=== PATIENT | female | born 1960 | race Caucasian/White ===

== ENCOUNTER 2019-10-16 06:37 | Emergency (ER) | payer OTHER, SELFPAY ==
--- NOTE | ~2019-10-16 | XR_ITS ---
EXAMINATION: XR chest 2V EXAM DATE: 10/16/2019 08:30 INDICATION: Cough. TECHNIQUE: Frontal and lateral projections of the chest obtained and reviewed. There is no prior calista dy for comparison. FINDINGS: Right basilar calcified granuloma. The lungs are otherwise clear. There are no pleural ef fusions. The cardiomediastinal silhouette is within normal limits. There is no pneumothorax suspect ed. The bones and soft tissues are unremarkable. Mild to moderate thoracolumbar scoliosis. IMPRESSION: No acute cardiopulmonary findings. Reviewed, dictated and finalized at location B.
[2019-10-16 06:45] VITALS: BP 179/88; PULSE 82; RESP 16; TEMP 36.4; O2SAT 95
--- NOTE | 2019-10-16 07:54 | ED.URI ---
HPI - URI/Sore Throat General Chief Complaint: Upper Respiratory Infection Stated Complaint: cough weakness fever Time Seen by Provider: 10/16/19 07:16 Source: patient Mode of arrival: ambulatory Limitations: no limitations History of Present Illness MD elicited complaint: cough Onset (ago): day(s) ( 4 days) Consistency: intermittent Severity: moderate Pain scale (0-10): 0 Description of mucous: yellow Exacerbating factors: nothing Relieving factors: nothing Context: other ( no sick contacts. No travel history.) Associated symptoms: cough and other ( No fever or chills. No nausea vomiting or diarrhea.) Treatments prior to arrival: other ( Took some Mucinex) Related Data Home Medications Medication Instructions Recorded Confirmed No Home Medications 10/16/19 10/16/19 Allergies Allergy/AdvReac Type Severity Reaction Status Date / Time No Known Allergies Allergy Unverified 12/06/17 06:42 Review of Systems Review of Systems: All systems reviewed & are unremarkable except as noted in HPI and below Constitutional: Constitutional: Reports as per HPI, Reports no additional constitutional complaints, Denies chills, Denies fever(s) and Denies weakness Eyes: Eyes: Reports as per HPI, Reports no additional eye complaints and Denies change in vision ENT: Reports system reviewed and no additional complaints, except as documented, Denies vertigo, Denies dizziness, Reports nasal congestion and Denies sore throat Cardiovascular: Cardiovascular: Reports as per HPI, Reports no additional cardiovascular complaints, Denies chest pain and Denies radiating jaw, neck or arm pain Respiratory: Respiratory: Reports as per HPI, Reports no additional respiratory complaints, Reports cough, Denies dyspnea and Denies wheezing Gastrointestinal: Gastrointestinal: Reports as per HPI, Reports no additional gastrointestinal complaints, Denies abdominal pain, Denies diarrhea, Denies nausea and Denies vomiting Genitourinary: Genitourinary: Reports no additional female genitourinary complaints, Reports as per HPI, Denies hematuria and Denies urinary incontinence Musculoskeletal: Musculoskeletal: Denies back pain and Denies myalgias Integumentary/Breasts: Skin/Breast: Reports system reviewed and no additional complaints, except as docu, Reports as per HPI, Denies pruritus, Denies erythema and Denies rash Neurologic: Reports system reviewed and no additional complaints, except as documented, Reports as per HPI, Denies vertigo, Denies dizziness, Denies syncope, Denies headache(s), Denies focal weakness, Denies numbness and Denies weakness Psychiatric: Psychiatric: Reports no additional psychiatric complaints, Denies anxiety and Denies depression Hematologic/Lymphatic: Hematologic/Lymphatic: Reports no additional hematologic/lymphatic complaints, Reports as per HPI, Denies easy bleeding and Denies easy bruising PMFSH Surgical History Surgical History (Updated 10/16/19 @ 08:20 by Jimenez Ac MD) History of carpal tunnel surgery Family History Family History (Updated 10/16/19 @ 08:21 by Jimenez Ac MD) Sibling Patient's sister is in good health Patient's brother is in good health Mother , mother of lung cancer at age 68 No problems noted. Father , father at age 75 of heart attack No problems noted. Other Family history of malignant neoplasm Social History Social History Smoking status: Heavy tobacco smoker Alcohol intake: never Exam Const: General: no acute distress and alert; No diaphoretic Nutritional Appearance: well nourished and obese Orientation/consciousness: patient oriented x3 Limitations: no limitations and No physical limitations HENMT: Ears: TM's normal bilaterally and EAC's normal General nose exam: no epistaxis Mouth: Yes lip normal and Yes moist mucous membranes Other: mild nasal congestion
[2019-10-16 07:55] LABS: Basophils Absolute Auto 0.03 K/mm3 (0.00-0.10); Basophils Percent Auto 0.4 % (0.0-1.0); Eosinophils Absolute Auto 0.28 K/mm3 (0.02-0.50); Eosinophils Percent Auto 3.6 % (1.0-6.0); Hematocrit 43.9 % (35.0-49.0); Hemoglobin 14.1 g/dL (12.0-15.0); Immature Granulocyte Absolute 0.01 K/mm3 (0.00-0.00); Immature Granulocyte Percent A 0.1 % (0.0-0.0); Lymphocytes Absolute Auto 2.55 K/mm3 (1.10-4.50); Lymphocytes Percent Auto 33.2 % (18.0-42.0); Mean Corpuscular HGB Conc 32.1 g/dL (32.0-36.0); Mean Corpuscular Hemoglobin 27.8 pg (27.0-31.0); Mean Corpuscular Volume 86.6 fL (78.0-102.0); Mean Platelet Volume 10.1 fl (9.2-11.8); Monocytes Absolute Auto 0.44 K/mm3 (0.10-0.90); Monocytes Percent Auto 5.7 % (2.0-11.0); Neutrophils Absolute Auto 4.4 K/mm3 (1.7-7.2); Platelet Count Result 238 K/mm3 (150-420); Red Blood Count 5.07 M/mm3 (4.20-5.40); Red Cell Distribution Width 13.4 % (11.6-14.4); White Blood Count 7.7 K/mm3 (4.8-10.8)
--- NOTE | 2019-10-16 08:08 | PC.NURSE ---
PT RETURNED TO ROOM
[2019-10-16 08:11] LABS: Alanine Aminotransferase 18 U/L (14-59); Albumin Level 3.7 g/dL (3.4-5.0); Alkaline Phosphatase 109 U/L (46-116); Aspartate Amino Transferase 11 U/L (15-37); Bilirubin,Total 0.3 mg/dL (0.00-1.00); Blood Urea Nitrogen 17 mg/dL (7-18); Calcium 9.2 mg/dL (8.5-10.1); Carbon Dioxide 24 mmol/L (21-32); Chloride 106 mmol/L (98-108); Estimated CRCL calculation 71 ml/min; Estimated Glomerular Filt Rate > 60; Glucose 114 mg/dL (70-99); Osmolality Calculated 296 mOsm/kg (285-295); Sodium 142 mmol/L (136-145); Total Protein 7.2 g/dL (6.4-8.2)
[2019-10-16 08:32] LABS: Influenza Control Valid (Valid)
[2019-10-16 09:22] VITALS: BP 164/88; PULSE 84; RESP 20; TEMP 36.4; O2SAT 97
== END 2019-10-16 09:24 | disposition home or self-care (01) ==
PROVIDERS: Emergency Provider Surgery
DX: B34.9 Viral infection, unspecified (principal)
CPT/HCPCS: 36415; 71046; 80053; 85025; 87081; 87804; 87880; 99282; 99283

== ENCOUNTER 2020-07-05 10:17 | Outpatient (NON) | payer OTHER, SELFPAY ==
[2020-07-06 13:30] LABS: SARS-CoV-2 RNA PCR Negative
== END 2020-07-05 10:18 ==
PROVIDERS: PCP Family Medicine; Visit Provider Family Medicine
DX: R68.89 Other general symptoms and signs (principal); Z20.828 Contact with and (suspected) exposure to other viral communicable diseases
CPT/HCPCS: 87635; C9803; U0003

== ENCOUNTER 2020-07-30 11:03 | Emergency (ER) | payer OTHER, SELFPAY ==
[2020-07-30 11:10] VITALS: BP 147/73; PULSE 81; RESP 19; TEMP 36.9; O2SAT 99
--- NOTE | 2020-07-30 11:15 | ED_ITS ---
HPI - Extremity Injury (Lower) General Chief Complaint: Extremity Injury, Lower Stated Complaint: R lower leg pain, numbess in R foot Time Seen by Provider: 07/30/20 11:15 Source: patient Mode of arrival: ambulatory Limitations: no limitations Related Data Home Medications Medication Instructions Recorded Confirmed No Home Medications 07/30/20 07/30/20 Allergies Allergy/AdvReac Type Severity Reaction Status Date / Time No Known Allergies Allergy Verified 11/17/19 14:32 [facility] Surgical History Surgical History (Updated 10/16/19 @ 08:20 by Jimenez Ac MD) History of carpal tunnel surgery Family History Family History (Updated 10/16/19 @ 08:21 by Jimenez Ac MD) Sibling Patient's sister is in good health Patient's brother is in good health Mother , mother of lung cancer at age 68 No problems noted. Father , father at age 75 of heart attack No problems noted. Other Family history of malignant neoplasm Social History Social History Smoking status: Heavy tobacco smoker Alcohol intake: never Discharge Plan Discharge Prescriptions: No Action No Home Medications RF: 0
--- NOTE | 2020-07-30 11:18 | ED.NEUROSD ---
HPI - Neuro Symptoms/Deficit General Chief Complaint: Extremity Problem,Nontraumatic Stated Complaint: R lower leg pain, numbess in R foot Time Seen by Provider: 07/30/20 11:15 Source: patient Mode of arrival: ambulatory Limitations: no limitations History of Present Illness HPI Narrative: 59-year-old woman with a history of peripheral vascular disease comes in complaining of pain behind her right knee and numbness in her right foot that is present when she stands. She states that the pain started approximately 3 days ago. She denies injury. She states she has had no chest pain, shortness of breath, and she denies pallor and coldness of her leg. She states he had a similar episode about 3 years ago and she was diagnosed with clogged arteries. She denies history of DVT, pulmonary embolism and hormonal therapy. Onset (ago): day(s) (3) Location: right leg History of same: Yes Severity: moderate Quality: numb Relieving factors: rest Exacerbating factors: other ( standing) On Anticoagulants: No Associated symptoms: denies other symptoms Related Data Allergies Allergy/AdvReac Type Severity Reaction Status Date / Time No Known Allergies Allergy Verified 11/17/19 14:32 Review of Systems Constitutional: Constitutional: Denies chills and Denies fever(s) ENT: Denies dysphagia, Denies nasal congestion and Denies sore throat Respiratory: Respiratory: Denies cough, Denies dyspnea and Denies wheezing Gastrointestinal: Gastrointestinal: Denies nausea and Denies vomiting Musculoskeletal: Musculoskeletal: Denies arthralgias and Denies joint swelling Integumentary/Breasts: Skin/Breast: Denies pruritus, Denies erythema and Denies rash Neurologic: Denies vertigo, Denies dizziness and Denies syncope Hematologic/Lymphatic: Hematologic/Lymphatic: Denies easy bleeding and Denies easy bruising Allergic/Immunologic: Allergic/Immunologic: Denies lip swelling, Denies throat swelling and Denies tongue swelling PMFSH Past Medical History Medical History Elevated BP without diagnosis of hypertension Gastroesophageal reflux disease without esophagitis Surgical History Surgical History History of carpal tunnel surgery Family History Family History (Updated 10/16/19 @ 08:21 by Jimenez Ac MD) Sibling Patient's sister is in good health Patient's brother is in good health Mother , mother of lung cancer at age 68 No problems noted. Father , father at age 75 of heart attack No problems noted. Other Family history of malignant neoplasm Social History Social History Smoking status: Heavy tobacco smoker Alcohol intake: never Exam Const: General: healthy appearing, no acute distress and alert Nutritional Appearance: obese Orientation/consciousness: patient oriented x3 Limitations: no limitations Eyes: Conjunctivae: conjunctivae normal Pupils: Equal, round and reactive pupils present EOM: EOMs intact bilaterally Resp: Effort & Inspection: normal respiratory effort and not labored Auscultation: clear to auscultation bilaterally, no rales, no rhonchi and no wheezes Cardio: Rate: regular rate Rhythm: regular rhythm Heart sounds: no murmurs Skin: General skin exam: normal color, no jaundice and no pallor Rashes: no rashes Neuro: General: patient oriented x3, moves all extremities, no focal motor deficits and CN's II-XI intact bilaterally Speech: normal speech Gait exam (Neuro): Normal gait present Other: Normal lower extremity distal sensory exam. Extrem: General: normal to inspection and no clubbing, cyanosis or edema Other: Warm, dry and pink bilaterally. 2Nd capillary refill. Regular biphasic pulses detected by Doppler at right dorsalis pedis and posterior tibialis. Psych: Appearance: grossly
[2020-07-30 12:19] LABS: Basophils Absolute Auto 0.02 K/mm3 (0.00-0.10); Basophils Percent Auto 0.3 % (0.0-1.0); Eosinophils Absolute Auto 0.24 K/mm3 (0.02-0.50); Eosinophils Percent Auto 3.2 % (1.0-6.0); Hematocrit 43.5 % (35.0-49.0); Hemoglobin 13.5 g/dL (12.0-15.0); Immature Granulocyte Absolute 0.03 K/mm3 (0.00-0.00); Immature Granulocyte Percent A 0.4 % (0.0-0.0); Lymphocytes Absolute Auto 2.24 K/mm3 (1.10-4.50); Lymphocytes Percent Auto 30.1 % (18.0-42.0); Mean Corpuscular Hemoglobin 27.3 pg (27.0-31.0); Mean Corpuscular Volume 88.1 fL (78.0-102.0); Mean Platelet Volume 10.2 fl (9.2-11.8); Monocytes Absolute Auto 0.43 K/mm3 (0.10-0.90); Monocytes Percent Auto 5.8 % (2.0-11.0); Neutrophils Absolute Auto 4.5 K/mm3 (1.7-7.2); Neutrophils Percent Auto 60.2 % (50.0-70.0); Platelet Count Result 233 K/mm3 (150-420); Red Blood Count 4.94 M/mm3 (4.20-5.40); Red Cell Distribution Width 13.6 % (11.6-14.4); White Blood Count 7.5 K/mm3 (4.8-10.8)
[2020-07-30 12:29] LABS: Anion Gap 9 mmol/L (8-16); Blood Urea Nitrogen 17 mg/dL (7-18); Calcium 9.1 mg/dL (8.5-10.1); Carbon Dioxide 27 mmol/L (21-32); Chloride 103 mmol/L (98-108); Estimated Glomerular Filt Rate 59; Glucose 104 mg/dL (70-99); Osmolality Calculated 289 mOsm/kg (285-295); Potassium 4.4 mmol/L (3.5-5.1); Sodium 139 mmol/L (136-145)
[2020-07-30 12:34] LABS: D Dimer 0.35 mg/L (0.19-0.50); INR 0.9; Partial Thromboplastin Time 25.1 SEC (23.90-30.70); Prothrombin Time 10.5 Seconds (9.50-12.10)
[2020-07-30 13:02] VITALS: RESP 16
== END 2020-07-30 13:05 | disposition home or self-care (01) ==
PROVIDERS: Emergency Provider Emergency Medicine; PCP Family Medicine
DX: R20.0 Anesthesia of skin (principal); M79.604 Pain in right leg
CPT/HCPCS: 36415; 80048; 85025; 85380; 85610; 85730; 99283

== ENCOUNTER → 2021-01-27 06:40 | Outpatient (CLI) | payer OTHER, SELFPAY ==
[2021-01-28 16:57] LABS: SARS-CoV-2 RNA PCR Negative
== END ==
PROVIDERS: PCP Family Medicine; Visit Provider Physician Assistant
DX: R05 Cough (principal); Z20.822 Contact with and (suspected) exposure to COVID-19
CPT/HCPCS: C9803; U0003; U0005

== ENCOUNTER 2022-12-11 13:42 | Outpatient (CLI) | payer MEDICAID, SELFPAY ==
--- NOTE | ~2022-12-11 | XR_ITS ---
Lumbosacral Spine: AP and lateral views Clinical History: Pain Findings: There is 23 degree levoscoliosis of the lumbar spine. There is moderate degenerative disc n arrowing at L1-L2, L3-L4, L4-L5. There is facet arthropathy throughout the lumbar spine, severe at L4 -L5 and L5-S1. The intervertebral disc spaces are preserved. The sacroiliac joints are normally outl ined. Impression: Levoscoliosis and moderate degenerative spondylosis, as detailed above. Reviewed, dictated and finalized at location M. Impression: Levoscoliosis and moderate degenerative spondylosis, as detailed above.
[2022-12-11 13:57] LABS: Basophils Absolute Auto 0.04 K/mm3 (0.00-0.10); Basophils Percent Auto 0.5 % (0.0-1.0); Eosinophils Absolute Auto 0.22 K/mm3 (0.02-0.50); Eosinophils Percent Auto 2.5 % (1.0-6.0); Hematocrit 45.1 % (35.0-49.0); Hemoglobin 14.4 g/dL (12.0-15.0); Immature Granulocyte Absolute 0.03 K/mm3 (0.00-0.00); Immature Granulocyte Percent A 0.3 % (0.0-0.0); Lymphocytes Absolute Auto 2.73 K/mm3 (1.10-4.50); Lymphocytes Percent Auto 31.2 % (18.0-42.0); Mean Corpuscular HGB Conc 31.9 g/dL (32.0-36.0); Mean Corpuscular Hemoglobin 27.9 pg (27.0-31.0); Mean Corpuscular Volume 87.4 fL (78.0-102.0); Mean Platelet Volume 10.1 fl (9.2-11.8); Monocytes Absolute Auto 0.47 K/mm3 (0.10-0.90); Monocytes Percent Auto 5.4 % (2.0-11.0); Neutrophils Absolute Auto 5.3 K/mm3 (1.7-7.2); Neutrophils Percent Auto 60.1 % (50.0-70.0); Platelet Count Result 257 K/mm3 (150-420); Red Blood Count 5.16 M/mm3 (4.20-5.40); Red Cell Distribution Width 13.2 % (11.6-14.4); White Blood Count 8.7 K/mm3 (4.8-10.8)
[2022-12-11 14:33] LABS: Alanine Aminotransferase 20 U/L (14-59); Alkaline Phosphatase 119 U/L (46-116); Anion Gap 11 mmol/L (8-16); Aspartate Amino Transferase 11 U/L (15-37); Bilirubin,Total 0.4 mg/dL (0.00-1.00); Blood Urea Nitrogen 19 mg/dL (7-18); Calcium 9.3 mg/dL (8.5-10.1); Carbon Dioxide 27 mmol/L (21-32); Chloride 102 mmol/L (98-108); Cholesterol 202 mg/dL (0-200); Estimated Glomerular Filt Rate 56; Glucose 101 mg/dL (70-99); HDL Direct 50 mg/dL (40-60); LDL Cholesterol Calculated 126 mg/dL (<130); Osmolality Calculated 292 mOsm/kg (285-295); Potassium 4.4 mmol/L (3.5-5.1); Sodium 140 mmol/L (136-145); Total Protein 7.5 g/dL (6.4-8.2); Triglycerides 130 mg/dL (0-150)
[2022-12-16 20:12] LABS: Vitamin D 25 Hydroxy 23 ng/mL (30-100)
== END 2022-12-11 13:43 | disposition home or self-care (01) ==
LOC: CHSLAB 13:45
PROVIDERS: PCP Nurse Practitioner Family; Visit Provider Nurse Practitioner Family
DX: I10 Essential (primary) hypertension (principal); Z79.899 Other long term (current) drug therapy; Z13.6 Encounter for screening for cardiovascular disorders; R03.0 Elevated blood-pressure reading, without diagnosis of hypertension; M54.9 Dorsalgia, unspecified; M43.06 Spondylolysis, lumbar region; M41.86 Other forms of scoliosis, lumbar region
CPT/HCPCS: 36415; 72100; 80053; 80061; 82306; 85025

== ENCOUNTER 2023-05-08 11:05 | Outpatient (CLI) | payer OTHER, SELFPAY ==
--- NOTE | ~2023-05-08 | XR_ITS ---
Clinical Indication: Cough PA and lateral views of the chest: Comparison: 09/14/2020 Findings: Calcified right basilar granuloma is unchanged. The lungs are otherwise clear, without evid ence of focal consolidation or pleural effusion. Cardiomediastinal silhouette is within normal limit s. Bones and soft tissues are unremarkable. Impression: No acute abnormality. Reviewed, dictated and finalized at location . Impression: No acute abnormality.
--- NOTE | 2023-05-08 11:25 | ECG_ITS ---
Measurements Intervals [place] Rate: 76 P: 68 DE: 168 QRS: 71 QRSD: 88 T: 49 QT: 360 QTc: 406 Interpretive Statements SINUS RHYTHM NO PREVIOUS ECG AVAILABLE FOR COMPARISON Electronically Signed On 05-08-2023 19:30:17 CDT by Wendy Mary M.D.
[2023-05-08 11:27] LABS: Basophils Absolute Auto 0.04 K/mm3 (0.00-0.10); Basophils Percent Auto 0.5 % (0.0-1.0); Eosinophils Absolute Auto 0.36 K/mm3 (0.02-0.50); Eosinophils Percent Auto 4.1 % (1.0-6.0); Hematocrit 44.9 % (35.0-49.0); Hemoglobin 14.2 g/dL (12.0-15.0); Immature Granulocyte Absolute 0.02 K/mm3 (0.00-0.00); Immature Granulocyte Percent A 0.2 % (0.0-0.0); Lymphocytes Absolute Auto 2.37 K/mm3 (1.10-4.50); Lymphocytes Percent Auto 27.2 % (18.0-42.0); Mean Corpuscular HGB Conc 31.6 g/dL (32.0-36.0); Mean Corpuscular Hemoglobin 27.8 pg (27.0-31.0); Mean Corpuscular Volume 87.9 fL (78.0-102.0); Mean Platelet Volume 10.2 fl (9.2-11.8); Monocytes Absolute Auto 0.45 K/mm3 (0.10-0.90); Monocytes Percent Auto 5.2 % (2.0-11.0); Neutrophils Absolute Auto 5.5 K/mm3 (1.7-7.2); Neutrophils Percent Auto 62.8 % (50.0-70.0); Platelet Count Result 244 K/mm3 (150-420); Red Blood Count 5.11 M/mm3 (4.20-5.40); Red Cell Distribution Width 13.7 % (11.6-14.4); White Blood Count 8.7 K/mm3 (4.8-10.8)
[2023-05-08 12:05] LABS: Alanine Aminotransferase 18 U/L (14-59); Albumin Level 3.9 g/dL (3.4-5.0); Alkaline Phosphatase 115 U/L (46-116); Anion Gap 9 mmol/L (8-16); Aspartate Amino Transferase 10 U/L (15-37); Bilirubin,Total 0.4 mg/dL (0.00-1.00); Blood Urea Nitrogen 16 mg/dL (7-18); Calcium 9.8 mg/dL (8.5-10.1); Carbon Dioxide 26 mmol/L (21-32); Chloride 106 mmol/L (98-108); Estimated Glomerular Filt Rate 58; Glucose 115 mg/dL (70-99); NT Pro B Type Natriuretic Pept 228 pg/mL (0-125); Osmolality Calculated 294 mOsm/kg (285-295); Potassium 4.3 mmol/L (3.5-5.1); Sodium 141 mmol/L (136-145); Total Protein 6.9 g/dL (6.4-8.2)
[2023-05-08 13:25] LABS: Cholesterol 211 mg/dL (0-200); HDL Direct 43 mg/dL (40-60); Hemoglobin A1C 5.6 % (<5.7); LDL Cholesterol Calculated 143 mg/dL (<130); Triglycerides 124 mg/dL (0-150)
== END 2023-05-08 11:06 | disposition home or self-care (01) ==
LOC: CHSLAB 11:07
PROVIDERS: PCP Nurse Practitioner Family; Visit Provider Nurse Practitioner Family
DX: R05.8 Other specified cough (principal); R06.02 Shortness of breath
CPT/HCPCS: 36415; 71046; 80053; 80061; 83036; 83880; 85025; 93005

== ENCOUNTER 2023-05-20 08:29 | Outpatient (CLI) | payer OTHER, SELFPAY ==
--- NOTE | 2023-05-20 08:35 | ECHO_ITS ---
Patient Info Name: Emely Woodard Age: 62 years : 1960 Gender: Female Ht: 64 in Wt: 216 lbs BSA: 2.15 m2 HR: 75 bpm BP: 170 / 95 mmHg Heart Rhythm: Sinus Rhythm Technical Quality: Good Exam Date: 05/20/2023 8:32 AM Exam Location: [facility] Patient Status: Outpatient Admit Date: 05/20/2023 Staff Ordering Physician: Gregg Andino APRN Assayer: Eamon Kauffman RDCS Attending Provider: Gregg Andino APRN Exam Type: CA echo doppler color flow Study Info Indications - ABNORMAL FINDING OF BLOOD CHEM Complete two-dimensional, color flow and Doppler transthoracic echocardiogram is performed. Summary 1. Complete two-dimensional, color flow and Doppler transthoracic echocardiogram is performed. 2. Left ventricular chamber dimension is normal. 3. Basal to apical posterior wall is hypokinetic. 4. Left ventricular systolic function is normal, estimated at 55-60%. 5. The left ventricular diastolic function is grade I diastolic dysfunction. 6. E/e' 10 is mildly elevated. 7. There is mild aortic valve sclerosis. 8. The mitral valve has mildly calcified annulus. 9. There is trace tricuspid valve regurgitation. 10. No pulmonary hypertension, estimated pulmonary arterial systolic pressure is 27 mmHg. Left Ventricle Basal to apical posterior wall is hypokinetic. E/e' 10 is mildly elevated. Left ventricular chamber dimension is normal. Left ventricular systolic function is normal, estimated at 55-60%. The left ventricular diastolic function is grade I diastolic dysfunction. Right Ventricle Right ventricular systolic function is normal and with normal TAPSE 3.3 cm. Right ventricular chamber dimension is normal. Left Atria Left atrial chamber dimension is normal. Right Atria Right atrial chamber dimension is normal. Aortic Valve The aortic valve is trileaflet. There is mild aortic valve sclerosis. There is no aortic valve stenosis. There is no aortic valve regurgitation. Pulmonic Valve There is no pulmonic regurgitation. Mitral Valve The mitral valve has mildly calcified annulus. There is no mitral valve stenosis. There is no mitral valve regurgitation. Tricuspid Valve There is trace tricuspid valve regurgitation. No pulmonary hypertension, estimated pulmonary arterial systolic pressure is 27 mmHg. Pericardium/Pleural There is no pericardial effusion. Inferior Vena Cava Normal inferior vena cava with >50% collapse upon inspiration consistent with normal right atrial pressure, 5 mmHg. Aorta The aortic root size at the sinus of Valsalva is normal. Left Ventricular Outflow Tract Name Value Normal LVOT 2D LVOT Diameter 2.0 cm LVOT Doppler LVOT Peak Velocity 80 cm/s LVOT Peak Gradient 3 mmHg LVOT Mean Gradient 2 mmHg LVOT VTI 23 cm LVOT VTI/AV VTI Ratio 0.8 LVOT Stroke Volume 72 ml Pulmonic Valve Name Value Normal JIMY Waddell
== END 2023-05-20 08:30 | disposition home or self-care (01) ==
LOC: CHSIMG 08:31
PROVIDERS: PCP Nurse Practitioner Family; Visit Provider Nurse Practitioner Family
DX: R06.02 Shortness of breath (principal); R79.89 Other specified abnormal findings of blood chemistry
CPT/HCPCS: 93306

== ENCOUNTER 2023-06-13 14:15 | Outpatient (NON) | payer OTHER, SELFPAY | END 2023-06-13 14:16 | disposition home or self-care (01) | LOC: CHSLAB 14:16 | PROVIDERS: Visit Provider Nurse Practitioner Family | DX: L03.90 Cellulitis, unspecified (principal) | CPT/HCPCS: 87070; 87075; 87147; 87186; 87205 ==

== ENCOUNTER 2023-06-18 09:30 | Outpatient (CLI) | payer OTHER, SELFPAY ==
--- NOTE | ~2023-06-18 | CT_ITS ---
CT Scan of the Chest without Contrast: Clinical Indication: Lung cancer screening, smoking history Technique: Contiguous sections were acquired throughout the chest without intravenous contrast. Dose reduction technique was used on this scan by utilizing automated exposure control and iterative recon struction technique. The dose-length product (DLP) was 434.66 mGy-cm. Findings: There is no evidence of any significant mediastinal, hilar or axillary lymphadenopathy. Small calcifi ed mediastinal and right hilar lymph nodes are present. The mediastinal soft tissues appear normal. There is no evidence of pleural or pericardial effusion. Calcified right lower lobe granuloma present. There is an 8 mm probable spiculated left upper lobe pu lmonary nodule (axial image 56). Images through the upper abdomen reveal small hiatal hernia. Impression: Lung RADS 4A: Suspicious. 3 month follow-up CT recommended. Reviewed, dictated and finalized at [facility]. AURANT MGR Impression: Lung RADS 4A: Suspicious. 3 month follow-up CT recommended.
== END 2023-06-18 09:31 | disposition home or self-care (01) ==
LOC: CHSIMG 09:31
PROVIDERS: PCP Nurse Practitioner Family; Visit Provider Nurse Practitioner Family
DX: Z12.2 Encounter for screening for malignant neoplasm of respiratory organs (principal); Z87.891 Personal history of nicotine dependence; R91.8 Other nonspecific abnormal finding of lung field
CPT/HCPCS: 71271

== ENCOUNTER 2023-10-25 11:22 | Outpatient (CLI) | payer OTHER, SELFPAY ==
[2023-10-25 11:40] LABS: Appearance Urine Clear (Clear); Bilirubin Urine Negative (Negative); Blood Urine Negative (Negative); Color Urine Light Yellow (Yellow); Glucose Urine UA Negative (Negative); Ketones Urine Negative (Negative); Leukocyte Esterase Ur Negative (Negative); Nitrate Urine Negative (Negative); Protein Urine Negative (Negative); Urobilinogen Urine 0.2 mg/dL (0.2-1.0)
[2023-10-25 12:04] LABS: Add Urine Microscopic? NO
[2023-10-25 12:31] LABS: Anion Gap 11 mmol/L (8-16); Blood Urea Nitrogen 20 mg/dL (7-18); Calcium 9.6 mg/dL (8.5-10.1); Carbon Dioxide 29 mmol/L (21-32); Chloride 101 mmol/L (98-108); Cholesterol 150 mg/dL (0-200); Estimated Glomerular Filt Rate 57; Glucose 112 mg/dL (70-99); HDL Direct 50 mg/dL (40-60); LDL Cholesterol Calculated 84 mg/dL (<130); NT Pro B Type Natriuretic Pept 153 pg/mL (0-125); Osmolality Calculated 295 mOsm/kg (285-295); Potassium 3.9 mmol/L (3.5-5.1); Sodium 141 mmol/L (136-145); Triglycerides 79 mg/dL (0-150)
[2023-10-25 16:31] LABS: Hemoglobin A1C 5.7 % (<5.7)
[2023-10-31 22:12] LABS: Vitamin D 25 Hydroxy 32 ng/mL (30-100)
== END 2023-10-25 11:23 | disposition home or self-care (01) ==
LOC: CHSLAB 11:24
PROVIDERS: PCP Nurse Practitioner Family; Visit Provider Nurse Practitioner Family
DX: R73.9 Hyperglycemia, unspecified (principal); I10 Essential (primary) hypertension; E78.5 Hyperlipidemia, unspecified; R79.89 Other specified abnormal findings of blood chemistry; M54.40 Lumbago with sciatica, unspecified side
CPT/HCPCS: 36415; 80048; 80061; 81003; 82306; 83036; 83880; 87086; 87088

== ENCOUNTER 2023-10-31 09:07 | Outpatient (CLI) | payer OTHER, SELFPAY ==
--- NOTE | ~2023-10-31 | CT_ITS ---
EXAMINATION: CT diagnostic chest wo con DATE: 10/31/2023 09:58 INDICATION: Follow-up nodule. Cough. TECHNIQUE: Computed tomography (CT) of the chest was performed without intravenous contrast. The dose -length product was 370.21 mGy-cm. Automated exposure control and iterative reconstruction technique were employed. COMPARISON: CT dated 06/18/2023 FINDINGS: Moderate size hiatal hernia. No significant pleural or pericardial effusion. No thoracic ly mphadenopathy. There are calcified granulomas in the spleen. There are calcified granuloma in the rig ht lower lobe. There is a 1 cm irregular shaped nodule in the lingula, enlarged compared with prior s tudy. No pneumothorax. IMPRESSION: 1. Enlarging 1 cm spiculated left upper lobe nodule, suspicious for bronchogenic carcinoma. Recommend further evaluation with percutaneous biopsy or pet/CT scan. Reviewed, dictated and finalized at location B. IMPRESSION: 1. Enlarging 1 cm spiculated left upper lobe nodule, suspicious for bronchogeni c carcinoma. Recommend further evaluation with percutaneous biopsy or pet/CT maria esther garcia
== END 2023-10-31 09:08 | disposition home or self-care (01) ==
LOC: CHSIMG 09:12
PROVIDERS: PCP Nurse Practitioner Family; Visit Provider Nurse Practitioner Family
DX: R91.1 Solitary pulmonary nodule (principal); R05.9 Cough, unspecified
CPT/HCPCS: 71250

== ENCOUNTER 2023-12-06 08:44 | Outpatient (CLI) | payer OTHER, SELFPAY ==
[2023-12-06 08:56] VITALS: PULSE 104; O2SAT 96
[2023-12-06 08:57] VITALS: PULSE 124; O2SAT 95
[2023-12-06 08:58] VITALS: PULSE 128; O2SAT 95
--- NOTE | 2023-12-09 10:20 | P.PCNPFT_ITS ---
PFT Procedure Performed PFT Procedure Performed Spirometry with Pre/Post Bronchodilator Plethysmography (Lung Vol) Diffusing Cap (DLCO) Flow Vol Loop PFT Interpretation DOS: 12/06/2023 REQUESTING: Herve Wing MD REASON FOR TESTING: lung nodule PULMONARY FUNCTION TESTS Results are reliable and reproducible. Repeatability of spirometry FEV1 maneuver pre and post bronchodilator is Grade A. Spirometry: The pre-bronchodilator FEV1 is 2.78 L, 121% predicted. The pre- bronchodilator FVC is 3.73 L, 130% predicted. The FEV1/FVC ratio is 75%. After bronchodilator, the FEV1 is 2.73 L, 119%, 2% decrease. After bronchodilator, the FVC is 3.44 L, 121%, 8% decrease. The FEV1/FVC ratio is 79%. Lung volumes: The total lung capacity is 5.69 L, 117% predicted. The residual volume is 1.97 L, 105% predicted. The RV/TLC is 35%. Airway resistance is normal. Diffusion: DLCO is 19, 70% predicted. The DLCO/VA is 3.53, 94% predicted. Flow volume loop: The flow volume loop is normal. IMPRESSION: Spirometry shows supranormal values without airflow obstruction without response to bronchodilator, normal lung volumes, and normal diffusion. There are no prior studies for comparison. Joann Gonzalez MD
--- NOTE | 2023-12-09 10:47 | WPDSIXMINUTE ---
Six Minute Walk Procedure Procedure Performed Pulmonary Stress Test (6 min walk) Six Minute Walk Six Minute Walk: DATE OF SERVICE: 12/06/2023 REQUESTING: Herve Wing MD REASON FOR TESTING: lung nodule SIX MINUTE WALK This test was conducted per ATS guidelines. The patient performed the walk while breathing room air. The initial saturation was 96%, and initial heart rate was 104 beats per minute. The patient walked for 1 minute with an increase in heart rate to 124 beats per minute, saturation was 95%. She had moderate dyspnea but continued to walk, completing a total of 400 ft/121.9 m at the end of 4 minutes. She had to stop due to shortness of breath and back pain. The saturation at the end of testing was 95%, and the heart rate was 128 beats per minute. IMPRESSION: This study shows baseline tachycardia, no desaturation, walk lasted only 4 minutes and was terminated due to dyspnea and back pain. The patient did not require supplemental oxygen with exertion. Clinical correlation is recommended. Joann Gonzalez MD
== END 2023-12-06 08:45 | disposition home or self-care (01) ==
LOC: CHSCARD 08:45
PROVIDERS: PCP Nurse Practitioner Family
DX: R91.1 Solitary pulmonary nodule (principal); R00.0 Tachycardia, unspecified; R06.00 Dyspnea, unspecified; M54.9 Dorsalgia, unspecified; R94.2 Abnormal results of pulmonary function studies
CPT/HCPCS: 94060; 94618; 94726; 94729

== ENCOUNTER 2024-04-22 14:44 | Outpatient (CLI) | payer OTHER, SELFPAY ==
--- NOTE | ~2024-04-22 | CT_ITS ---
CT Scan of the Chest without Contrast: Clinical Indication: Lung nodule Technique: Contiguous sections were acquired throughout the chest without intravenous contrast. Dose reduction technique was used on this scan by utilizing automated exposure control and iterative recon struction technique. The dose-length product (DLP) was 825.38 mGy-cm. COMPARISON: 10/31/2023 Findings: There is no evidence of any significant mediastinal, hilar or axillary lymphadenopathy. Small calcifi ed subcarinal and right hilar lymph nodes are present. There is no evidence of pleural or pericardial effusion. Calcified right basilar granuloma present. There is focal patchy airspace disease and [place] in the peripheral left upper lobe at the site of the previously identified nodule. Images through the upper abdomen reveal small hiatal hernia. Impression: Patchy amorphous airspace disease in the peripheral left upper lobe the site of previous identified n odule. This could reflect post therapy change. Previously noted nodule may persist underlying measuri ng approximately 7 mm in diameter. Correlate with any interval therapy or relevant history since prio r exam. Reviewed, dictated and finalized at location . Impression: Patchy amorphous airspace disease in the peripheral left upper lobe the site of previous identified nodule. This could reflect post therapy change. Previously noted nodule may persist underlying measuring approximately 7 mm in diameter. Correlate with any interval therapy or relevant history since prior exam.
== END 2024-04-22 14:45 | disposition home or self-care (01) ==
LOC: CHSIMG 14:45
PROVIDERS: PCP Nurse Practitioner Family; Visit Provider Physician Assistant Medical
DX: R91.1 Solitary pulmonary nodule (principal); R91.8 Other nonspecific abnormal finding of lung field
CPT/HCPCS: 71250

== ENCOUNTER 2024-07-31 09:26 | Outpatient (CLI) | payer OTHER, SELFPAY ==
--- NOTE | ~2024-07-31 | CT_ITS ---
Clinical indication:Personal history of lung cancer post radiation treatment in February 2024 presents fo r restaging CT examination of the chest COMPARISON:04/22/2024 TECHNIQUE: Multiple contiguous axial images of the chest were performed without the administration of intravenous contrast. FINDINGS: LUNG:Calcified interstitial change within the periphery of the left upper lobe. Calcified nodule within the right lower lobe. MEDIASTINUM:Nonpathologically enlarged or morphologically suspicious lymph nodes within the mediastin um or bilateral axilla. HEART:The heart is of normal size, without pericardial effusion. SOFT TISSUES OF THE CHEST: Unremarkable. BONES OF THE CHEST: Unremarkable. VISUALIZED PORTION OF THE UPPER ABDOMEN: Punctate calcifications identified within the splenic parenc hyma, suggesting prior granulomatous disease. The gallbladder is only minimally distended and otherwise unremarkable. IMPRESSION: Findings suggesting prior granulomatous disease, as detailed above Reviewed, dictated and finalized at location A. [facility]
== END 2024-07-31 09:27 | disposition home or self-care (01) ==
LOC: CHSIMG 09:29
PROVIDERS: PCP Nurse Practitioner Family; Visit Provider Physician Assistant Medical
DX: C34.12 Malignant neoplasm of upper lobe, left bronchus or lung (principal)
CPT/HCPCS: 71250

== ENCOUNTER 2024-11-09 10:05 | Outpatient (CLI) | payer OTHER, SELFPAY ==
--- NOTE | ~2024-11-09 | CT_ITS ---
CT Scan of the Chest without Contrast: Clinical Indication: Treatment response Technique: Contiguous sections were acquired throughout the chest without intravenous contrast. Dose reduction technique was used on this scan by utilizing automated exposure control and iterative recon struction technique. The dose-length product (DLP) was 713.56 mGy-cm. COMPARISON: 07/31/2024 Findings: There is no evidence of any significant mediastinal, hilar or axillary lymphadenopathy. The mediastin al soft tissues appear normal. There is no evidence of pleural or pericardial effusion. Large calcified right basilar granuloma is again present. Somewhat bandlike consolidation in the cynthia pheral left upper lobe is most compatible with posttreatment change. Images through the upper abdomen reveal small hiatal hernia. Impression: Probable evolving posttreatment change/post radiation change in the left upper lobe/lingula. Correlat e for acute pneumonia. Morphology is less typical for recurrent neoplasm. Reviewed, dictated and finalized at [facility]. Impression: Probable evolving posttreatment change/post radiation change in the left upper lobe/lingula. Correlate for acute pneumonia. Morphology is less typical for rec urrent neoplasm.
--- OUTSIDE RECORDS SUMMARY | 2024-11-09 11:23 | XMS_ITS ---
Author Organization [facility] Address [address] [place] [address] Care Team Providers Care Landscape Drafter Name Role Phone Sina Gregg HUDSON Primary Care Provider [phone] Cecil Garcia MD Unavailable Gonzalo Mann MD Unavailable [phone] Active Problems Patient Care Coordination No te Formatting of this note migh t be different from the original. Referring provider: Dr. Shahnaz Wing Ms. Emely Woodard is a 63-year-old with a lung nodule. Patient was being followed for a lung nodule. On 10/31/2023 the patient underwent a chest CT without contrast which showed an enlarging 1 cm spiculated left upper lobe lung nodule. On 12/12/2023 the patient underwent a PET scan which showed a spiculated 1.1 cm nodule in the left upper lobe with a maximum SUV of 3. There was no hypermetabolic thoracic lymphadenopathy. There was diffuse linear uptake throughout the esophagus likely related to esophagitis. There was a noncalcified 4 mm nodule in the left apex with no abnormal FDG uptake. There was a small ground-glass nodule measuring 8 mm in the right lower lobe with no abnormal uptake. On 12/06/2023 the patient underwent pulmonary function testing which showed an FEV1 of 121% of predicted and a DLCO of 78% of predicted. Patient has a BMI of 45. She is a current smoker. Due to back pain, the patient is unable to walk more than a block. Patient presents today for further surgical evaluation. Problem Noted Date Diagnosed Date Malignant neoplasm of upper lobe of left lung Personal history of radiation therapy 04/23/2024 Pulmonary nodule 11/19/2023 Smoking greater than 30 pack years 11/19/2023 Current Treatment and Therapy Plans No current plan information found. Past Treatment and Therapy Plans No past plan information found. Radiation Treatments * Course [id number] - 02/03/2024 Treatment Period Energy Fraction Dose Fractions Total Dose Plans Planned RONAL LUNG 01/27/2024 - 02/03/2024 1,800 3 / 5,400 Reference Points Delivered PTV 01/27/2024 - 02/03/2024 5,400
--- OUTSIDE RECORDS SUMMARY | 2024-11-09 11:23 | XMS_ITS | Clinical Summary ---
Author Organization [facility] Address [address] [place] [address] Care Team Providers Care Heating And Ventilation Engineer Name Role Phone Gregg Andino DEEPALI Primary Care Provider [phone] Tamia Edward MD Unavailable Allergies No known active allergies Medications Vitamin D3 (CHOLECALCIFERO L) 50 mcg tablet Take 1 tablet (50 mcg total) by mouth daily. Active pantoprazole EC (PROTONIX) 40 MG tablet Take 1 tablet (40 mg total) by mouth nightly at bedtime. Active atorvastatin (LIPITOR) 80 MG tablet Take 1 tablet (80 mg total) by mouth nightly at bedtime. Active hydroCHLOROthia zide (MICROZIDE) 12.5 MG tablet Take 1 tablet (12.5 mg total) by mouth every morning. Active lisinopril (PRINIVIL) 5 MG tablet Take 1 tablet (5 mg total) by mouth daily. Active Active Problems No known active problems Encounters Date Type Department Care Team Description 10/22/2024 Telephone [facility] [address] [place] [id number] Tamia Edward MD Reschedule 10/15/2024 Telephone [facility] [address] [place] [address] Tamia Edward MD Appointment Request 10/08/2024 12:06 PM HOSTESS CASHIER - 10/08/2024 11:59 PM [facility] Hospital Encounter [place] [facility] [address] [place] [address] Tamia Edward MD Discharge Disposition: Home or Self Care (Routine Discharge) 10/08/2024 Travel 10/08/2024 Orders Only [facility] [address] [place] [address] Tamia Edward MD 09/28/2024 Telephone [facility] [address] [place] [address] Tamia Edward MD Reschedule 09/11/2024 Telephone [facility] [address] [place] [address] Tamia Edward MD Reschedule 08/27/2024 Orders Only [facility] [address] [place] [address] Tamia Edward MD 08/13/2024 Telephone [facility] [address] [place] [address] Tamia Edward MD Reschedule from Last 3 Months Family History Medical History Relation Comments Heart Attack Father Relation Status Comments Father Mother Social History Tobacco Use Types Packs/Day Years Used Date Smoking Tobacco: Every Day Cigarettes Alcohol Use Standard Drinks/Week Comments Never 0 (1 standard drink = 0.6 oz pur e alcohol) Comments Unknown Sex and Gender Information Value Date Recorded Sex Assigned at Not on file Legal Sex Female 7:54 PM CDT Gender Identity Not on file Sexual Orientation Not on file Last Filed Vital Signs Vital Sign Reading Time Taken Comments Blood Pressure 138/68 07/15/2023 10:03 AM HOSTESS CASHIER Pulse 82 07/15/2023 10:03 AM HOSTESS CASHIER Temperature - - Respiratory Rate 20 07/15/2023 10:03 AM HOSTESS CASHIER Oxygen Saturation 98% 07/15/2023 10:03 AM HOSTESS CASHIER Inhaled Oxygen Concentration - - Weight 122.9 kg (271 lb) 07/15/2023 10:03 AM HOSTESS CASHIER Height 165.1 cm (5' 5 ) 07/15/2023 10:03 AM HOSTESS CASHIER Body Mass Index 45.1 07/15/2023 10:03 AM HOSTESS CASHIER Plan of Treatment Upcoming Encounters Date Type Department Care Team (Late st Contact Info) Description 11/30/2024 10:30 AM CDT Office Visit [facility] [place] [address] Tamia Edward MD [address] [place] [address] Health Maintenance Due Date Last Done Comments Cervical Cancer Screening Pa p Smear (Age 30 to 64) Every 3 Years 1960 Colorectal Cancer Screening Colonoscopy (10 Years) 1960 Annual Physical 11/19/1963 Pneumococcal Vaccine: Pediatrics (0 to 5 Years) and At-Risk Patients (6 to 64 Years) (1 of 2 - PCV) 1966 Hepatitis C 1978 DTaP, Tdap and Td Vaccines ( 1 - Tdap) 11/19/1979 Cervical Cancer Screening Pa p with HPV Testing (Age 30 to 64) Every 5 Years 1990 Cervical Cancer Screening wi th HPV 1990 Mammogram Screening 2000 Zoster Vaccines (1 of 2) 2010 RSV Immunization or 60+ Years (1 - Risk 60-74 years 1-dose series) 2020 COVID-19 Vaccine (2023-2 5 season) 2024 01/20/2022, 03/10/2021, 02/17/2021 Meningococcal B Vaccine Aged Out No l onger eligible based on patient's age to complete this topic Meningococcal Vaccine Aged Out No courtney ashley eligible based on patient's age to complete this topic RSV Immunizations Under 20 Months Aged Out No longer eligible b ased on patient's age to complete this topic Procedures Procedure Name Priority Date/Time Associated Diagnosis Comments USE ECHOCARDIOGRAM W CON Routine 10/08/2024 1:59 PM HOSTESS CASHIER Aortic valve sclerosis from Last 3 Months Results * USE ECHOCARDIOGRAM W CON (10/08/2024 1:59 PM HOSTESS CASHIER) Anatomical Region Laterality Modality NA Ultrasound 10/08/2024 12:1 8 PM HOSTESS CASHIER Narrative 10/10/2024 9:25 PM HOSTESS CASHIER Echocardiography Report Pat.Name: Emely Woodard Pat.ID: [id number] .Date: 10/08/2024 Refer.MD: Jamse, [facility] Exam Time: 12:18:00 PM Study Type:JAMES Height: 64 in Weight: 265 lb BSA: 2.2 m2 Age: 4 1960,63Y Sex: F Sonogrphr: Romain Pat. Stat.:Outpatient CPT - 4: C8929 Reason for Study:Aortic valve sclerosis Procedures: Study performed at [place], [place] and interpreted by [facility]. 2D, M-mode, Doppler, Color Flow, Myocardial contrast was used to enhance endocardial definition. ++++++++++++++++++++++++++++++++++++ SUMMARY: ++++++++++++++++++++++++++++++++++++ The left ventricular size is normal. The ejection fraction is >55%. The right ventricle size is normal. The right ventricular function is normal. Estimated right atrial pressure of 8 mmHg. Mild calcification of aortic valve leaflets. Mild calcification of mitral valve leaflets. There is trace tricuspid regurgitation. ++++++++++++++++++++++++++++++++++++ FINDINGS: ++++++++++++++++++++++++++++++++++++ LV: The left ventricular size is normal. Left ventricular function is normal. The ejection fraction is >55%. Diastolic filling is normal for age. RV: The right ventricle size is normal. The right ventricular function is normal. LA: Left atrial size is normal. RA: The right atrial size is normal. GAUDENCIO: No evidence of pericardial effusion. AO: Aorta is normal. PA: Estimated right atrial pressure of 8 mmHg. Unable to reliably quantitate pulmonary systolic pressure. SVn: Inferior vena cava is not assessable. AV: The aortic valve is trileaflet. No evidence of aortic valve stenosis. No evidence of aortic regurgitation. Mild calcification of aortic valve leaflets. MV: No evidence of significant mitral regurgitation. Mild calcification of mitral valve leaflets. PV: Trace pulmonic regurgitation. Pulmonic valve not well visualized. TV: The tricuspid valve appears structurally normal. There is trace tricuspid regurgitation. <Electronic Signature> 10/10/2024 09:25 PM Tamia Edward M.D. Procedure Note Tamia Edward MD - 10/12/2024 Echocardiography Report Pat.Name: Emely Woodard Pat.ID: [id number] .Date: 10/08/2024 Refer.MD: James, [facility] Exam Time: 12:18:00 PM Study Type:OUTREACH Height: 64 in Weight: 265 lb BSA: 2.2 m2 Age: 4 1960,63Y Sex: F Sonogrphr: Romain Armstrong. Stat.:Outpatient CPT - 4: C8929 Reason for Study:Aortic valve sclerosis Procedures: Study performed at [facility], [place], [place] and interpreted by [facility]. 2D, M-mode, Doppler, Color Flow, Myocardial contrast was used to enhance endocardial definition. ++++++++++++++++++++++++++++++++++++ SUMMARY: ++++++++++++++++++++++++++++++++++++ The left ventricular size is normal. The ejection fraction is >55%. The right ventricle size is normal. The right ventricular function is normal. Estimated right atrial pressure of 8 mmHg. Mild calcification of aortic valve leaflets. Mild calcification of mitral valve leaflets. There is trace tricuspid regurgitation. ++++++++++++++++++++++++++++++++++++ FINDINGS: ++++++++++++++++++++++++++++++++++++ LV: The left ventricular size is normal. Left ventricular function is normal. The ejection fraction is >55%. Diastolic filling is normal for age. RV: The right ventricle size is normal. The right ventricular function is normal. LA: Left atrial size is normal. RA: The right atrial size is normal. GAUDENCIO: No evidence of pericardial effusion. AO: Aorta is normal. PA: Estimated right atrial pressure of 8 mmHg. Unable to reliably quantitate pulmonary systolic pressure. SVn: Inferior vena cava is not assessable. AV: The aortic valve is trileaflet. No evidence of aortic valve stenosis. No evidence of aortic regurgitation. Mild calcification of aortic valve leaflets. MV: No evidence of significant mitral regurgitation. Mild calcification of mitral valve leaflets. PV: Trace pulmonic regurgitation. Pulmonic valve not well visualized. TV: The tricuspid valve appears structurally normal. There is trace tricuspid regurgitation. <Electronic Signature> 10/10/2024 09:25 PM Tamia Edward M.D. us Tamia Edward MD ECHO Final Result from Last [address] [place] [address] Care Teams Heating And Ventilation Engineer Relationship Specialty Start Date End Date Gregg Andino FNP [address] [place] [id number] PCP - General Nurse Practitioner Family 06/13/23 Tamia Edward MD [address] [place] [address] [place] [address] Consulting Physician CARDIOVASCULAR DISEASE 06/13/23
--- OUTSIDE RECORDS SUMMARY | 2024-11-09 11:23 | XMS_ITS | Clinical Summary ---
Author Organization [facility] Address [address] [place] [address] Care Team Providers Care Language Specialist Name Role Phone Sina Gregg HUDSON Primary Care Provider [phone] Cecil Garcia MD Unavailable Gonzalo Mann MD Unavailable [phone] Allergies No known active allergies Medications lisinopriL (PRINIVIL,ZESTR [place]) 5 mg tablet TAKE 1 TABLET BY MOUTH EVERY DAY FOR 8 WEEKS, PLEASE TAKE CARE WITH POSITIONAL CHANGES Active pantoprazole DR (PROTONIX) 40 mg EC tablet Take 1 tablet (40 mg total) by mouth nightly at bedtime. Active hydroCHLOROthia zide (MICROZIDE) 12.5 mg capsule TAKE 1 CAPSULE BY MOUTH EVERY DAY FOR 8 WEEKS 4 Active cholecalciferol (VITAMIN D-3) 2000 unit tablet Take 50 mcg by mouth daily Active atorvastatin (LIPITOR) 80 mg tablet Take 1 tablet (80 mg total) by mouth nightly at bedtime Active guaiFENesin ER (MUCINEX) 600 mg 12 hr tabletIndicatio ns:Subacute cough Take 2 tablets (1,200 mg total) by mouth 2 (two) times a day 120 tablet 1 5 08/17/19 26 Active Active Problems Patient Care Coordination No te Formatting of this note migh t be different from the original. Referring provider: Dr. Shahnaz Wing Ms. Emely Saffel is a 63-year-old with a lung nodule. [...] Smoking greater than 30 pack years 11/19/2023 Encounters Date Type Department Care Team Description 09/28/2024 Telephone [facility] Building 2 Radiation Oncology [address] [place] [address] Sondra Ritchie 08/17/2024 10:30 AM CANVAS WORKER Office Visit [facility] 2 Radiation Oncology [address] [place] [address] Brigette Garcia, PA Malignant neoplasm of upper lobe of left lung (HCC) (Primary Dx); Personal history of radiation therapy; Subacute cough from Last 3 Months Surgical History Surgery Date Site/Laterality Comments CARPAL TUNNEL RELEASE CATARACT EXTRACTION Bilateral Medical History Medical History Date Comments Hypercholesteremia Hypertension Family History Medical History Relation Name Comments Lung cancer Maternal Grandfather Lung cancer Maternal Grandmother Lung cancer Mother Relation Name Status Comments Maternal Grandfather Maternal Grandmother Mother Social History Tobacco Use Types Packs/Day Years Used Date Smoking Tobacco: Every Day Cigarettes Tobacco Cessation:Ready to Q uit: Not Asked; Counseling Given: Not Answered AUDIT-C Answer Date Recorded Frequency of Alcohol Consumption Not on file 01/09/2024 Q2: How many drinks containi ng alcohol do you have on a typical day when you are drinking? Patient does not drink Frequency of Binge Drinking Not on file 01/2024 Comments Unknown Sex and Gender Information Value Date Recorded Sex Assigned at Not on file Legal Sex Female 12:57 AM CANVAS WORKER Gender Identity Female 01/02/2024 12:52 PM CDT Sexual Orientation Straight 01/02/2024 12 :52 PM CDT Obstetrics History Last Filed Vital Signs Vital Sign Reading Time Taken Comments Blood Pressure 133/87 08/17/2024 10:17 AM CANVAS WORKER Pulse 86 08/17/2024 10:17 AM CANVAS WORKER Temperature 36.7 C (98.1 F) 01/09/2024 11:01 AM CDT Respiratory Rate 18 01/09/2024 11:01 AM CDT Oxygen Saturation 99% 08/17/2024 10:17 AM CANVAS WORKER Inhaled Oxygen Concentration - - Weight 122 kg (269 lb) 08/17/2024 10:17 AM CANVAS WORKER Height 157.5 cm (5' 2 ) 01/09/2024 11:01 AM CDT Body Mass Index 49.2 01/09/2024 11:01 AM CDT Plan of Treatment Health Maintenance Due Date Last Done Comments Breast Cancer Screening-Mammogram 1960 Cervical Cancer Screening 1960 Colon Cancer Screening-Colonoscopy 1960 Depression Screening 1960 Hepatitis C Screening 1960 DTaP/Tdap/Td Vaccine (1 - Tdap) 11/19/1971 Hepatitis B Screening 1978 Regular Well Visit/Exam 18-64 1978 Pneumococcal vaccine <65 (1 of 2 - PCV) 11/19/1979 Zoster Vaccine (1 of 2) 11/19/1979 Covid-19 Vaccine ( season) 2024 01/20/2022, 03/10/2021, 02/17/2021 Influenza Vaccine (Season Ended) 2025 Insurance [employer] [facility] [employer] [facility] Care Teams Language Specialist Relationship Specialty Start Date End Date Gregg Andino NP [address] [place] [address] PCP - General Family Medicine 11/26/23 Cecil Garcia MD [id number] [place] [address] Surgeon Thoracic Surgery 01/13/24 Gonzalo Mann MD [address] [place] [address] Radiation Oncologist Radiation Oncology 01/13/24
--- OUTSIDE RECORDS SUMMARY | 2024-11-09 11:23 | XMS_ITS | Referral Summary ---
Author Organization [facility] Address [address] [place] [address] Care Team Providers Care It Senior Software Engineer Java Name Role Phone Sina Gregg HUDSON Primary Care Provider [phone] Cecil Garcia MD Unavailable Gonzalo Mann MD Unavailable [phone] Encounters Date Type Department Care Team Description 09/28/2024 Telephone [facility] Office Building 2 Radiation Oncology [address] [place] [id number] Sondra Ritchie 08/17/2024 10:30 AM MERCHANT MILLER Office Visit [facility] 2 Radiation Oncology [address] [place] [address] Brigette Garcia, PA Malignant neoplasm of upper lobe of left lung (HCC) (Primary Dx); Personal history of radiation therapy; Subacute cough from Last 3 Months Allergies No known active allergies Medications lisinopriL [...] BY MOUTH EVERY DAY FOR 8 WEEKS Active cholecalciferol (VITAMIN D-3) 2000 unit tablet [...] Smoking greater than 30 pack years 11/19/2023 Social History Tobacco Use Types Packs/Day Years [...] on file Legal Sex Female 12:57 AM MERCHANT MILLER Gender Identity Female 01/02/2024 12:52 PM CDT Sexual Orientation Straight 01/02/2024 12 :52 PM CDT Last Filed Vital Signs Vital Sign Reading Time Taken Comments Blood Pressure 133/87 08/17/2024 10:17 AM MERCHANT MILLER Pulse 86 08/17/2024 10:17 AM MERCHANT MILLER Temperature 36.7 C (98.1 F) 01/09/2024 11:01 AM CDT Respiratory Rate 18 01/09/2024 11:01 AM CDT Oxygen Saturation 99% 08/17/2024 10:17 AM MERCHANT MILLER Inhaled Oxygen Concentration - - Weight 122 kg (269 lb) 08/17/2024 10:17 AM MERCHANT MILLER Height 157.5 cm (5' 2 ) 01/09/2024 11:01 AM CDT Body Mass Index 49.2 01/09/2024 11:01 AM CDT Plan of Treatment Not on file Insurance [facility] Care Teams It Senior Software Engineer Java Relationship Specialty Start Date End Date Gregg Andino NP [address] [place] [address] PCP - General Family Medicine 11/26/23 Cecil Garcia MD [id number] [place] [address] Surgeon Thoracic Surgery 01/13/24 Gonzalo Mann MD [address] [place] [address] Radiation Oncologist Radiation Oncology 01/13/24
== END 2024-11-09 10:06 | disposition home or self-care (01) ==
LOC: CHSIMG 10:07
PROVIDERS: PCP Nurse Practitioner Family
DX: C34.12 Malignant neoplasm of upper lobe, left bronchus or lung (principal)
CPT/HCPCS: 71250

== ENCOUNTER 2024-12-21 12:43 | Emergency (ER) | payer OTHER, SELFPAY ==
[2024-12-21] VITALS (13 sets, daily range): BP systolic 115–143; BP diastolic 61–81; PULSE 86–106; RESP 16–20; TEMP 36.6; O2SAT 96–100
--- NOTE | ~2024-12-21 | XR_ITS ---
XR chest 2V Ordering provider: Dewayne Rodriguez MD History: 64 years Female with . cough x 1 week, hx of lung ca . Comparison: May 08, 2023 FINDINGS: MEDIASTINUM: The cardiac silhouette is not enlarged. LUNGS: Opacity in the left mid zone is seen which may be a nodule. This area measures 1.4 x 2.1 cm. O ther differential include focal atelectasis although less likely. No infiltrates, effusions or pneumo thorax. OTHER: No free air under the diaphragm. Degenerative spine. Dextroscoliosis. IMPRESSION: Highly suggestive nodule in the left mid zone measuring 1.4 x 2.1 cm. 3 months follow-up and if clini rdaha warranted CT is advised. No acute cardiopulmonary pathology. Reviewed, dictated and finalized at location A. IMPRESSION: Highly suggestive nodule in the left mid zone measuring 1.4 x 2.1 cm. 3 months follow-up and if clinically warranted CT is advised. No acute cardiopulmonary pathology.
--- OUTSIDE RECORDS SUMMARY | 2024-12-21 12:48 | XMS_ITS ---
Author Organization [facility] at the [facility] Office Center Address [address] [place] [address] Care Team Providers Care In Home Aide Name Role Phone Sina Gregg HUDSON Primary Care Provider [phone] Cecil Garcia MD Unavailable Gonzalo Mann MD Unavailable [phone] Active Problems Patient Care Coordination No [...]
--- OUTSIDE RECORDS SUMMARY | 2024-12-21 12:48 | XMS_ITS | Referral Summary ---
Author Organization [facility] Office Center Address [address] [place] [address] Care Team Providers Care Computer Technical Support Specialist Name Role Phone Sina Gregg HUDSON Primary Care Provider [phone] Cecil Garcia MD Unavailable Gonzalo Mann MD Unavailable [phone] Encounters Date Type Department Care Team Description 11/16/2024 11:00 AM CDT Office Visit [facility] Medical Office Building 2 Radiation Oncology [address] [place] [address] Brigette Garcia, PA Malignant neoplasm of upper lobe of left lung (HCC) (Primary Dx); Personal history of radiation therapy 11/10/2024 12:48 PM CDT - 11/10/2024 11:59 PM CDT Hospital Encounter [facility] [address] [place] [address] Discharge Disposition: Discharge to home or self care 09/28/2024 Telephone [facility] Medical Office Building 2 Radiation Oncology [address] [place] [address] Sondra Ritchie from Last 3 Months Allergies No known [...] on file Legal Sex Female 12:57 AM STORE GROUP MANAGER Gender Identity Female 01/02/2024 12:52 PM CDT Sexual Orientation Straight 01/02/2024 12 :52 PM CDT Last Filed Vital Signs Vital Sign Reading Time Taken Comments Blood Pressure 132/52 11/16/2024 10:11 AM CDT Pulse 84 11/16/2024 10:11 AM CDT Temperature 36.7 C (98.1 F) 01/09/2024 11:01 AM CDT Respiratory Rate 18 01/09/2024 11:01 AM CDT Oxygen Saturation 97% 11/16/2024 10:11 AM CDT Inhaled Oxygen Concentration - - Weight 122.5 kg (270 lb) 11/16/2024 10:11 AM CDT Height 157.5 cm (5' 2 ) 01/09/2024 11:01 AM CDT Body Mass Index 49.38 01/09/2024 11:01 AM CDT Plan of Treatment Not on file Procedures Procedure Name Priority Date/Time Associated Diagnosis Comments CT BODY OUTSIDE REFERENCE Routine 11/10/2024 12:48 PM CDT Diagnosis unknown from Last 3 Months Results * CT Body Outside Reference (11/10/2024 12:48 PM CDT) Impressions [facility] - 11/10/2024 12:48 PM CDT These images are for Reference purposes only and have not been reviewed by [facility] Radiology. There will be no report generated by a [facility] Radiologist. Narrative [facility] - 11/10/2024 12:48 PM CDT EXAMINATION: Images For Reference Purposes Only us Gonzalo Mann MD IMG CT PROCEDURES Final Result [facility] from Last 3 Months Insurance [facility] Care Teams Computer Technical Support Specialist Relationship Specialty Start Date End Date Gregg Andino NP [address] [place] [address] PCP - General Family Medicine 11/26/23 Cecil Garcia MD [address] [place] [address] Surgeon Thoracic Surgery 01/13/24 Gonzalo Mann MD [address] [place] [address] Radiation Oncologist Radiation Oncology 01/13/24
--- OUTSIDE RECORDS SUMMARY | 2024-12-21 12:48 | XMS_ITS | Clinical Summary ---
Author Organization [facility] at the [facility] Office Center Address [address] [place] [address] Care Team Providers Care Body Care Manager Name Role Phone Sina Gregg HUDSON Primary Care Provider [phone] Cecil Garcia MD Unavailable Gonzalo Mann MD Unavailable [phone] Allergies No known active allergies Medications [...] Description 11/16/2024 11:00 AM CDT Office Visit [facility] Medical Office Building 2 Radiation Oncology [address] [place] [address] Brigette Garcia, PA Malignant neoplasm of upper lobe of left lung (HCC) (Primary Dx); Personal history of radiation therapy 11/10/2024 12:48 PM CDT - 11/10/2024 11:59 PM CDT Hospital Encounter [facility] [address] [place] [address] Discharge Disposition: Discharge to home or self care 09/28/2024 Telephone [facility] Medical Office Building 2 Radiation Oncology [address] [place] [address] Sondra Ritchie from Last 3 Months Surgical History Surgery [...] on file Legal Sex Female 12:57 AM INSTRUMENT REPAIRER HELPER Gender Identity Female 01/02/2024 12:52 PM CDT [...] (1 of 2) 11/19/1979 Covid-19 Vaccine ( - season) 2024 01/20/2022, 03/10/2021, 02/17/2021 Influenza Vaccine (Season Ended) 2025 Procedures Procedure Name Priority Date/Time Associated Diagnosis Comments CT BODY OUTSIDE REFERENCE Routine 11/10/2024 12:48 PM CDT Diagnosis unknown from Last 3 Months Results * CT Body Outside Reference (11/10/2024 12:48 PM CDT) Impressions [facility] - 11/10/2024 12:48 PM CDT These images are for Reference purposes only and have not been reviewed by [facility] Radiology. There will be no report generated by a [facility] Radiologist. Narrative [facility] - 11/10/2024 12:48 PM CDT EXAMINATION: Images For Reference Purposes Only us Gonzalo Mann MD IMG CT PROCEDURES Final Result [facility] from Last 3 Months Insurance [facility] Member Subscriber Plan / Payer (Ef fective 2023-Present) Name:Emely Woodard Azra Relation to Subscriber:Self Name:Emely Woodard Payer ID:[id number] (NAIC) Group ID:Not on file Type:MEDICAID RISK OTHER Address: [facility] [id number] [place] [id number] Care Teams Body Care Manager Relationship Specialty Start Date End Date Gregg Andino NP [address] [place] [address] PCP - General Family Medicine 11/26/23 Cecil Garcia MD [address] [place] [address] Surgeon Thoracic Surgery 01/13/24 Gonzalo Mann MD [address] [place] [address] Radiation Oncologist Radiation Oncology 01/13/24
--- OUTSIDE RECORDS SUMMARY | 2024-12-21 12:48 | XMS_ITS | Clinical Summary ---
Author Organization [facility] Address [address] [place] [address] Care Team Providers Care Cargo Operations Agent Name Role Phone Andino, Gregg PALUMBO Primary Care Provider Bridgett Johnson MD Unavailable Allergies No known active allergies [...] (5 mg total) by mouth daily. Active aspirin EC (ECOTRIN) 81 MG tablet Take 1 tablet (81 mg total) by mouth daily. 30 tablet 11 12/09/2024 Active cilostazol (PLETAL) 50 MG tabletIndicatio ns:PAD (peripheral artery disease) Take 1 tablet (50 mg total) by mouth 2 (two) times daily. 60 tablet 11 12/09/2024 Active Active Problems No known active problems Encounters Date Type Department Care Team Description 12/09/2024 Telephone [facility] [address], [place] [id number] Bridgett Johnson MD Results 12/07/2024 1:34 PM CDT - 12/07/2024 11:59 PM CDT Hospital Encounter [facility] [address] [facility] [place] [address] Bridgett Johnson MD Discharge Disposition: Home or Self Care (Routine Discharge) 12/07/2024 Travel 11/30/2024 10:30 AM CDT Office Visit [facility] [address] [facility] [address] Bridgett Johnson MD Heart Problem 11/30/2024 9:37 AM CDT - 11/30/2024 11:59 PM CDT Hospital Encounter [facility] [address] [facility] [place] [address] Bridgett Johnson MD Discharge Disposition: Home or Self Care (Routine Discharge) 11/30/2024 Travel 11/25/2024 Orders Only [facility] [address] [place] [address] Bridgett Johnson MD 10/22/2024 Telephone [facility] [address] [place] [address] Bridgett Johnson MD Reschedule 10/15/2024 Telephone [facility] [address] [place] [address] Bridgett Johnson MD Appointment Request 10/08/2024 12:06 PM GRAPHICS SOFTWARE ENGINEER - 10/08/2024 11:59 PM GRAPHICS SOFTWARE ENGINEER Hospital Encounter [facility] [address] [facility] [place] [address] Bridgett Johnson MD Discharge Disposition: Home or Self Care (Routine Discharge) 10/08/2024 Travel 10/08/2024 Orders Only [facility] [address] [place] [address] Bridgett Johnson MD 09/28/2024 Telephone [facility] [address] [place] [address] Bridgett Johnson MD Reschedule from Last 3 Months Family History Medical History Relation Comments Heart Attack Father Relation Status Comments Father Mother Social History Tobacco Use Types Packs/Day Years Used Date Smoking Tobacco: Every Day Cigarettes Smokeless Tobacco: Never Tobacco Cessation:Ready to Q uit: Not Asked; Counseling Given: Not Answered Alcohol Use Standard Drinks/Week Comments Never 0 (1 standard drink = 0.6 oz pur e alcohol) Comments Unknown Sex and Gender Information Value Date Recorded Sex Assigned at Female 11/30/2024 9:36 AM CDT Legal Sex Female 7:54 PM CDT Gender Identity Not on file Sexual Orientation Not on file Last Filed Vital Signs Vital Sign Reading Time Taken Comments Blood Pressure 138/66 11/30/2024 9:58 AM CDT Pulse 82 11/30/2024 9:57 AM CDT Temperature - - Respiratory Rate 20 11/30/2024 9:57 AM CDT Oxygen Saturation 99% 11/30/2024 9:57 AM CDT Inhaled Oxygen Concentration - - Weight 120.2 kg (265 lb) 11/30/2024 9:57 AM CDT Height 160 cm (5' 3 ) 11/30/2024 9:57 AM CDT Body Mass Index 46.94 11/30/2024 9:57 AM CDT Plan of Treatment Upcoming Encounters Date Type Department Care Team (Late st Contact Info) Description 12/08/2025 9:30 AM CDT Office Visit [facility] [place] [address] Bridgett Johnson MD [address] [place] [address] Health Maintenance Due Date Last Done Comments ASCVD LDL 1960 ASCVD Statin 1960 Cervical Cancer Screening Pa p Smear (Age 30 to 64) Every 3 Years 1960 Colorectal Cancer Screening Colonoscopy (10 Years) 1960 Annual Physical 11/19/1963 Hepatitis C 1978 DTaP, Tdap and Td Vaccines ( 1 - Tdap) 11/19/1979 Pneumococcal Vaccine: 50+ Years (1 of 2 - PCV) 11/19/1979 Cervical Cancer Screening Pa p with HPV Testing (Age 30 to 64) Every 5 Years 1990 Cervical Cancer Screening [facility] HPV 1990 Mammogram Screening 2000 Zoster Vaccines [...] Procedure Name Priority Date/Time Associated Diagnosis Comments USV ART DUPLEX LOW JUAN Routine 3:21 PM CDT PAD (peripheral artery disease) Essential (primary) hypertension Aortic valve sclerosis USV BRIAN LTD JUAN Routine 12/07/2024 3:21 PM CDT PAD (peripheral artery disease) Essential (primary) hypertension Aortic valve sclerosis ECG 12-LEAD Routine 11/30/2024 9:44 AM CDT Essential (primary) hypertension USE ECHOCARDIOGRAM W CON Routine 10/08/2024 1:59 PM GRAPHICS SOFTWARE ENGINEER Aortic valve sclerosis from Last 3 Months Results * USV ART DUPLEX LOW JUAN (12/07/2024 3:21 PM CDT) Anatomical Region Laterality Modality Extremity Ultrasound 12/07/2024 1:58 PM CDT Narrative 12/08/2024 5:40 PM CDT Outreach Arterial Duplex Bilateral Vascular Report Pat.Name: Emely Woodard Pat.ID: [id number] .Date: 12/07/2024 Refer.MD: James, [facility] Exam Time: 1:58:00 PM Study Type:OUTREACH ART DUPLEX SCAN BILATERAL LEG Height: 64 in Age: 4 1960,64Y Sex: F Sonogrphr: Cata Ballard [facility] Pat. Stat.:Outpatient Reason for Study:PAD (peripheral artery disease), Essential (primary) hypertension, Aortic valve sclerosis Procedures: Study performed at [facility], [place], [place] and interpreted by [facility]. ++++++++++++++++++++++++++++++++++++ SUMMARY: ++++++++++++++++++++++++++++++++++++ Rt Lower Ext: 0-19% stenosis noted in all remaining segments of the right lower extremity. Rt Lower Ext: 50-75% stenosis noted in the proximal superficial femoral artery. Lt Lower Ext: 0-19% stenosis noted in all segments of the left lower extremity. ++++++++++++++++++++++++++++++++++++ FINDINGS: ++++++++++++++++++++++++++++++++++++ Rt Lower Ext: 0-19% stenosis noted in all remaining segments of the right lower extremity. 50-75% stenosis noted in the proximal superficial femoral artery. Lt Lower Ext: 0-19% stenosis noted in all segments of the left lower extremity. ++++++++++++++++++++++++++++++++++++ MEASUREMENTS: ++++++++++++++++++++++++++++++++++++ DOPPLER Left SALES ENGAGEMENT MANAGER SALES ENGAGEMENT MANAGER EDV 23 cm/s SALES ENGAGEMENT MANAGER PSV 159 cm/s Left Prox Profunda Prox Profunda P 148 cm/s Prox Profunda E 16 cm/s Left Prox SFA Prox SFA PSV 65 cm/s Prox SFA EDV 0 cm/s Left Mid SFA Mid SFA PSV 92 cm/s Mid SFA EDV 24 cm/s Left Dist SFA Dist SFA PSV 84 cm/s Dist SFA EDV 21 cm/s Left Prox Pop A Prox Pop A EDV 12 cm/s Prox Pop A PSV 57 cm/s Left Dist Pop A Dist Pop A PSV 48 cm/s Dist Pop A EDV 0 cm/s Left Prox CYBER SECURITY ENGINEER Prox CYBER SECURITY ENGINEER PSV 28 cm/s Prox CYBER SECURITY ENGINEER EDV 7 cm/s Left Mid CYBER SECURITY ENGINEER Mid CYBER SECURITY ENGINEER PSV 8 cm/s Mid CYBER SECURITY ENGINEER EDV 3 cm/s Left Dist CYBER SECURITY ENGINEER Dist CYBER SECURITY ENGINEER PSV 7 cm/s Dist CYBER SECURITY ENGINEER EDV 2 cm/s Left Prox Lori A Prox Lori A EDV 4 cm/s Prox Lori A PSV 8 cm/s Left Mid Lori A Mid Lori A EDV 4 cm/s Mid Lori A PSV 9 cm/s Left Dist Lori A Dist Lori A EDV 4 cm/s Dist Lori A PSV 9 cm/s Left Prox JOSSELIN Prox JOSSELIN PSV 19 cm/s Prox JOSSELIN EDV 0 cm/s Left Mid JOSSELIN Mid JOSSELIN PSV 18 cm/s Mid JOSSELIN EDV 0 cm/s Left Dist JOSSELIN Dist JOSSELIN PSV 23 cm/s Dist JOSSELIN EDV 0 cm/s Left DPA DPA EDV 0 cm/s DPA PSV 24 cm/s Right SALES ENGAGEMENT MANAGER SALES ENGAGEMENT MANAGER EDV 13 cm/s SALES ENGAGEMENT MANAGER PSV 161 cm/s Right Prox Profunda Prox Profunda P 165 cm/s Prox Profunda E 0 cm/s Right Prox SFA Prox SFA PSV 250 cm/s Prox SFA EDV 19 cm/s Right Mid SFA Mid SFA PSV 110 cm/s Mid SFA EDV 0 cm/s Right Dist SFA Dist SFA PSV 81 cm/s Dist SFA EDV 7 cm/s Right Prox Pop A Prox Pop A EDV 5 cm/s Prox Pop A PSV 32 cm/s Right Dist Pop A Dist Pop A PSV 33 cm/s Dist Pop A EDV 0 cm/s Right Prox CYBER SECURITY ENGINEER Prox CYBER SECURITY ENGINEER PSV 61 cm/s Prox CYBER SECURITY ENGINEER EDV 17 cm/s Right Mid CYBER SECURITY ENGINEER Mid CYBER SECURITY ENGINEER PSV 18 cm/s Mid CYBER SECURITY ENGINEER EDV 0 cm/s Right Dist CYBER SECURITY ENGINEER Dist CYBER SECURITY ENGINEER PSV 18 cm/s Dist CYBER SECURITY ENGINEER EDV 0 cm/s Right Prox Lori A Prox Lori A EDV 5 cm/s Prox Lori A PSV 16 cm/s Right Mid Lori A Mid Lori A EDV 1 cm/s Mid Lori A PSV 12 cm/s Right Dist Lori A Dist Lori A EDV 0 cm/s Dist Lori A PSV 9 cm/s Right Prox JOSSELIN Prox JOSSELIN PSV 26 cm/s Prox JOSSELIN EDV 7 cm/s Right Mid JOSSELIN Mid JOSSELIN PSV 22 cm/s Mid JOSSELIN EDV 6 cm/s Right Dist JOSSELIN Dist JOSSELIN PSV 14 cm/s Dist JOSSELIN EDV 1 cm/s Right DPA DPA EDV 0 cm/s DPA PSV 21 cm/s <Electronic Signature> 12/08/2024 05:40 PM Bridgett Johnson M.D. Procedure Note Bridgett Johnson MD - 12/08/2024 Outreach Arterial Duplex Bilateral Vascular Report Pat.Name: Emely Woodard Pat.ID: [id number] .Date: 12/07/2024 [facility] 1:58:00 PM Study Type:OUTREACH ART DUPLEX SCAN BILATERAL LEG Height: 64 in Age: 4 1960,64Y Sex: F Sonogrphr: Cata Ballard [facility] Pat. Stat.:Outpatient Reason for Study:PAD (peripheral artery disease), Essential (primary) hypertension, Aortic valve sclerosis Procedures: Study performed at [place], [place] and interpreted by [facility]. ++++++++++++++++++++++++++++++++++++ SUMMARY: ++++++++++++++++++++++++++++++++++++ Rt Lower Ext: 0-19% stenosis noted in all remaining segments of the right lower extremity. Rt Lower Ext: 50-75% stenosis noted in the proximal superficial femoral artery. Lt Lower Ext: 0-19% stenosis noted in all segments of the left lower extremity. ++++++++++++++++++++++++++++++++++++ FINDINGS: ++++++++++++++++++++++++++++++++++++ Rt Lower Ext: 0-19% stenosis noted in all remaining segments of the right lower extremity. 50-75% stenosis noted in the proximal superficial femoral artery. Lt Lower Ext: 0-19% stenosis noted in all segments of the left lower extremity. ++++++++++++++++++++++++++++++++++++ MEASUREMENTS: ++++++++++++++++++++++++++++++++++++ DOPPLER Left SALES ENGAGEMENT MANAGER SALES ENGAGEMENT MANAGER EDV 23 cm/s SALES ENGAGEMENT MANAGER PSV 159 cm/s Left Prox Profunda Prox Profunda P 148 cm/s Prox Profunda E 16 cm/s Left Prox SFA Prox SFA PSV 65 cm/s Prox SFA EDV 0 cm/s Left Mid SFA Mid SFA PSV 92 cm/s Mid SFA EDV 24 cm/s Left Dist SFA Dist SFA PSV 84 cm/s Dist SFA EDV 21 cm/s Left Prox Pop A Prox Pop A EDV 12 cm/s Prox Pop A PSV 57 cm/s Left Dist Pop A Dist Pop A PSV 48 cm/s Dist Pop A EDV 0 cm/s Left Prox CYBER SECURITY ENGINEER Prox CYBER SECURITY ENGINEER PSV 28 cm/s Prox CYBER SECURITY ENGINEER EDV 7 cm/s Left Mid CYBER SECURITY ENGINEER Mid CYBER SECURITY ENGINEER PSV 8 cm/s Mid CYBER SECURITY ENGINEER EDV 3 cm/s Left Dist CYBER SECURITY ENGINEER Dist CYBER SECURITY ENGINEER PSV 7 cm/s Dist CYBER SECURITY ENGINEER EDV 2 cm/s Left Prox Lori A Prox Lori A EDV 4 cm/s Prox Lori A PSV 8 cm/s Left Mid Lori A Mid Lori A EDV 4 cm/s Mid Lori A PSV 9 cm/s Left Dist Lori A Dist Lori A EDV 4 cm/s Dist Lori A PSV 9 cm/s Left Prox JOSSELIN Prox JOSSELIN PSV 19 cm/s Prox JOSSELIN EDV 0 cm/s Left Mid JOSSELIN Mid JOSSELIN PSV 18 cm/s Mid JOSSELIN EDV 0 cm/s Left Dist JOSSELIN Dist JOSSELIN PSV 23 cm/s Dist JOSSELIN EDV 0 cm/s Left DPA DPA EDV 0 cm/s DPA PSV 24 cm/s Right SALES ENGAGEMENT MANAGER SALES ENGAGEMENT MANAGER EDV 13 cm/s SALES ENGAGEMENT MANAGER PSV 161 cm/s Right Prox Profunda Prox Profunda P 165 cm/s Prox Profunda E 0 cm/s Right Prox SFA Prox SFA PSV 250 cm/s Prox SFA EDV 19 cm/s Right Mid SFA Mid SFA PSV 110 cm/s Mid SFA EDV 0 cm/s Right Dist SFA Dist SFA PSV 81 cm/s Dist SFA EDV 7 cm/s Right Prox Pop A Prox Pop A EDV 5 cm/s Prox Pop A PSV 32 cm/s Right Dist Pop A Dist Pop A PSV 33 cm/s Dist Pop A EDV 0 cm/s Right Prox CYBER SECURITY ENGINEER Prox CYBER SECURITY ENGINEER PSV 61 cm/s Prox CYBER SECURITY ENGINEER EDV 17 cm/s Right Mid CYBER SECURITY ENGINEER Mid CYBER SECURITY ENGINEER PSV 18 cm/s Mid CYBER SECURITY ENGINEER EDV 0 cm/s Right Dist CYBER SECURITY ENGINEER Dist CYBER SECURITY ENGINEER PSV 18 cm/s Dist CYBER SECURITY ENGINEER EDV 0 cm/s Right Prox Lori A Prox Lori A EDV 5 cm/s Prox Lori A PSV 16 cm/s Right Mid Lori A Mid Lori A EDV 1 cm/s Mid Lori A PSV 12 cm/s Right Dist Lori A Dist Lori A EDV 0 cm/s Dist Lori A PSV 9 cm/s Right Prox JOSSELIN Prox JOSSELIN PSV 26 cm/s Prox JOSSELIN EDV 7 cm/s Right Mid JOSSELIN Mid JOSSELIN PSV 22 cm/s Mid JOSSELIN EDV 6 cm/s Right Dist JOSSELIN Dist JOSSELIN PSV 14 cm/s Dist JOSSELIN EDV 1 cm/s Right DPA DPA EDV 0 cm/s DPA PSV 21 cm/s <Electronic Signature> 12/08/2024 05:40 PM Bridgett Johnson M.D. Bridgett Johnson MD VASC Final Result * USV BRIAN LTD JUAN (12/07/2024 3:21 PM CDT) Anatomical Region Laterality Modality Extremity Ultrasound 12/07/2024 3:00 PM CDT Narrative 12/08/2024 5:42 PM CDT Outreach Arterial Doppler RBIAN Vascular Report Pat.Name: Emely Woodard Pat.ID: [id number] .Date: 12/07/2024 Refer.MD: James, [facility] Exam Time: 3:00:00 PM Study Type:OUTREACH ART DOPPLER - BRIAN Height: 64 in Age: 4 1960,64Y Sex: F Sonogrphr: brandan Prabhakar [facility] Pat. Stat.:Outpatient Reason for Study:PAD (peripheral artery disease), Essential (primary) hypertension, Aortic valve sclerosis Procedures: Study performed at [facility], [place], [place] and interpreted by [facility]. ++++++++++++++++++++++++++++++++++++ FINDINGS: ++++++++++++++++++++++++++++++++++++ BRIAN Rt: The resting BRIAN is 0.49. This suggests moderate disease. Pulse volume tracings suggest moderate peripheral arterial occlusive disease. The TBI is 0.21. TBI is within abnormal range. BRIAN Lt: The resting BRIAN is 0.45. This suggests moderate disease. Pulse volume tracings suggest moderate peripheral arterial occlusive disease. The TBI is 0.2. TBI is within abnormal range. ++++++++++++++++++++++++++++++++++++ MEASUREMENTS: ++++++++++++++++++++++++++++++++++++ PRESSURES Right Brachial Brach P 125 mmHg Right Ankle DP AnkleDP P 51 mmHg Right Ankle PT AnklePT P 67 mmHg Right Great Toe GreatToe P 29 mmHg Right BRIAN PT BRIAN PT 0.486 Right BRIAN DP BRIAN DP 0.37 Right TBI TBI 0.21 Left Brachial Brach P 138 mmHg Left Ankle DP AnkleDP P 55 mmHg Left Ankle PT AnklePT P 62 mmHg Left Great Toe GreatToe P 27 mmHg Left BRIAN PT BRIAN PT 0.449 Left BRIAN DP BRIAN DP 0.399 Left TBI TBI 0.196 <Electronic Signature> 12/08/2024 05:42 PM Bridgett Johnson M.D. Procedure Note Bridgett Johnson MD - 12/08/2024 Outreach Arterial Doppler BRIAN Vascular Report Pat.Name: Emely Woodard Pat.ID: [id number] .Date: 12/07/2024 Refer.MD: James, [facility] Exam Time: 3:00:00 PM Study Type:OUTREACH ART DOPPLER - BRIAN Height: 64 in Age: 4 1960,64Y Sex: F Sonogrphr: brandan Prabhakar [facility] Pat. Stat.:Outpatient Reason for Study:PAD (peripheral artery disease), Essential (primary) hypertension, Aortic valve sclerosis Procedures: Study performed at [place], [place] and interpreted by [facility]. ++++++++++++++++++++++++++++++++++++ FINDINGS: ++++++++++++++++++++++++++++++++++++ BRIAN Rt: The resting BRIAN is 0.49. This suggests moderate disease. Pulse volume tracings suggest moderate peripheral arterial occlusive disease. The TBI is 0.21. TBI is within abnormal range. BRIAN Lt: The resting BRIAN is 0.45. This suggests moderate disease. Pulse volume tracings suggest moderate peripheral arterial occlusive disease. The TBI is 0.2. TBI is within abnormal range. ++++++++++++++++++++++++++++++++++++ MEASUREMENTS: ++++++++++++++++++++++++++++++++++++ PRESSURES Right Brachial Brach P 125 mmHg Right Ankle DP AnkleDP P 51 mmHg Right Ankle PT AnklePT P 67 mmHg Right Great Toe GreatToe P 29 mmHg Right BRIAN PT BRIAN PT 0.486 Right BRIAN DP BRIAN DP 0.37 Right TBI TBI 0.21 Left Brachial Brach P 138 mmHg Left Ankle DP AnkleDP P 55 mmHg Left Ankle PT AnklePT P 62 mmHg Left Great Toe GreatToe P 27 mmHg Left BRIAN PT BRIAN PT 0.449 Left BRIAN DP BRIAN DP 0.399 Left TBI TBI 0.196 <Electronic Signature> 12/08/2024 05:42 PM Bridgett Johnson M.D. Bridgett Johnson MD [facility] Final Result * ECG 12 lead (HOSPITAL PERFORMED ONLY) (11/30/2024 9:44 AM CDT) 11/30/2024 9:44 AM CDT Narrative [facility] - 12/01/2024 1:17 PM [address]T [address] 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: : 1960 Requested By: BRIDGETT JOHNSON Order Number: [id number] Reading MD: Brdigett Johnson Measurements Intervals [place] Rate: 82 P: 73 AR: 185 QRS: 81 QRSD: 93 T: 58 QT: 361 QTc: 423 Interpretive Statements SINUS RHYTHM us Bridgett Johnson MD ECG ORDERABLES Final Result [facility] * USE ECHOCARDIOGRAM W CON (10/08/2024 1:59 PM GRAPHICS SOFTWARE ENGINEER) Anatomical Region Laterality Modality NA Ultrasound 10/08/2024 12:1 8 PM GRAPHICS SOFTWARE ENGINEER Narrative 10/10/2024 9:25 PM GRAPHICS SOFTWARE ENGINEER Echocardiography Report Pat.Name: Yuki Woodardjonn Armstrong.ID: [id number] .Date: 10/08/2024 Refer.MD: James, [facility] Exam Time: 12:18:00 PM Study Type:OUTREACH Height: 64 in Weight: 265 lb BSA: 2.2 m2 Age: 4 1960,63Y Sex: F Sonogrphr: Romain Armstrong. Stat.:Outpatient CPT - 4: C8929 Reason for Study:Aortic valve sclerosis Procedures: Study performed at [facility], [place], [place] and interpreted by [facility]. 2D, M-mode, Doppler, Color Flow, [...] tricuspid regurgitation. <Electronic Signature> 10/10/2024 09:25 PM Bridgett Johnson M.D. Procedure Note Bridgett Johnson MD - 10/12/2024 Echocardiography Report Pat.Name: Emely Woodard Pat.ID: [id number] .Date: 10/08/2024 Refer.MD: James, [facility] Exam Time: 12:18:00 PM Study Type:JAMES Height: 64 in Weight: 265 lb BSA: 2.2 m2 Age: 4 1960,63Y Sex: F Sonogrphr: Romain Armstrong. Stat.:Outpatient CPT - 4: C8929 Reason for Study:Aortic valve sclerosis Procedures: Study performed at [place], [place] and interpreted by [facility]. 2D, M-mode, Doppler, Color Flow, [...] tricuspid regurgitation. <Electronic Signature> 10/10/2024 09:25 PM Bridgett Johnson M.D. Bridgett Johnson MD ECHO Final Result from Last 3 Months Insurance [facility] Care Teams Cargo Operations Agent Relationship Specialty Start Date End Date Gregg Andino FNP [address] [place] [phone] PCP - General Nurse Practitioner Family 06/13/23 Bridgett Johnson MD [address] [place] [address] [place] [address] Consulting Physician CARDIOVASCULAR DISEASE 06/13/23
--- NOTE | 2024-12-21 13:17 | ED.GENADULT ---
HPI - General Adult General Chief complaint: Upper Respiratory Infection Stated complaint: cough, earache, chills, night sweats Time Seen by Provider: 12/21/24 13:16 Source: patient Mode of arrival: ambulatory Limitations: no limitations History of Present Illness HPI narrative: 64-year-old white female complains cough congestion coughing up white to yellow phlegm sinus drainage the cold chills last night. Otherwise she is eating drinking voiding stooling fine without any swelling lumps or bumps shortness of breath chest pain back pain or abdominal pain or any pain Except in her throat. Denies any rash or itching dizziness or lightheadedness. Denies any other complaints Related Data Allergies Allergy/AdvReac Type Severity Reaction Status Date / Time No Known Allergies Allergy Verified 12/21/24 13:01 Review of Systems Review of Systems: All systems reviewed & are unremarkable except as noted in HPI and below PMFSH Past Medical History Medical History Hypertension Hyperlipidemia Elevated brain natriuretic peptide (BNP) level Gastroesophageal reflux disease without esophagitis Surgical History Surgical History History of carpal tunnel surgery Family History Family History Sibling Patient's sister is in good health Patient's brother is in good health Mother , mother of lung cancer at age 68 No problems noted. Father , father at age 75 of heart attack No problems noted. Other Family history of malignant neoplasm Social History Social History Social History: Has cut down from 1-1.5 PPD to 2 cigarettes daily since last visit (update as of 10/23/23) Smoking status: Current every day smoker Alcohol intake: never Substance use: never Substance use type: does not use Lack of Transportation: No Lack of Food: Never True Current Housing: I Have Housing Concerned About Future Housing: No Difficulty Paying Gas/Electric Bills: No Difficulty Paying for Meds: No Currently Unemployed: No Education: High School Diploma/GED Difficulty w/ Childcare or Family Care: No Living arrangements: with family Exam Narrative: White female patient with no apparent distress. Head normocephalic, atraumatic. Eyes conjunctiva pink sclera nonicteric. Extraocular movements are intact. Ears externally normal. TMs are normal. Oropharynx is clear with moist mucous membranes without exudates. Neck is supple nontender no lymphadenopathy. Back is nontender. Lungs are clear. Heart is regular rate and rhythm without murmurs gallops or rubs. Chest wall nontender. Abdomen is soft and nontender no hepatosplenomegaly or masses no CVA tenderness no abdominal bruits. Extremities no cyanosis clubbing or edema. Skin is warm and dry without rashes or lesions. Neurological patient is alert and oriented x4. Motor and sensory grossly intact. Gait is normal. Course Vital Signs Vital signs: Vital Signs Temperature 36.6 C 12/21/24 12:43 Pulse Rate 97 12/21/24 12:43 Respiratory Rate 16 12/21/24 12:43 Blood Pressure 140/80 12/21/24 12:43 Pulse Oximetry 97 12/21/24 12:43 Oxygen Delivery Room Air 12/21/24 12:43 Temperature 36.6 C 12/21/24 12:43 Pulse Rate 89 12/21/24 13:35 Respiratory Rate 20 12/21/24 13:35 Blood Pressure 140/80 12/21/24 12:43 Pulse Oximetry 96 12/21/24 13:45 Oxygen Delivery Room Air 12/21/24 13:45 Medical Decision Making [facility] Narrative Medical decision making narrative: Patient was placed in Room # 3 History and physical was performed. normal CBC, coags, D-dimer and lactic acid and troponin Sodium 136 creatinine 1.02 GFR 55 Osmo 284 the rest of CMP was normal. BNP is 237 COVID flu RSV and strep were negative Chest x-ray per radiologist highly suggested nodule in the left mid zone measuring 1.4 x 2.3 cm. Three-month follow-up and if clinically warranted CT is advised no acute cardio pulmonary pathology Independent Historian: patient External Source Review: Differential Dx includes but not limited to: pneumonia COVID flu RSV strep Medications were Reviewed: Independently Interpreted by me: EKG showed sinus rhythm with frequent PVCs at a rate of [address] T wave abnormalities impression abnormal EKG as independently interpreted by me. Meds, treatment, ED course: DuoNeb Social Situation Impacting Patients Care: Shared decision Making: evaluation was discussed all questions were asked and answered patient agreed with the plan patient would take doxycycline 100 mg twice a day for 10 days. Albuterol inhaler 2 puffs 4 times a day for 10 days. Respiratory showed patient how to use it. She would discussed with her primary care provider about possibly getting a CT scan in 3 months to recheck that nodule in her left mid lung field DISCHARGE DIAGNOSIS: acute bronchitis left mid lung zone pulmonary nodule DISPOSITION: discharge home CONDITION AT DISCHARGE: stable Vital Signs Vital Signs: Vital Signs Temperature 36.6 C 12/21/24 12:43 Pulse Rate 97 12/21/24 12:43 Respiratory Rate 16 12/21/24 12:43 Blood Pressure 140/80 12/21/24 12:43 Pulse Oximetry 97 12/21/24 12:43 Oxygen Delivery Room Air 12/21/24 12:43 Temperature 36.6 C 12/21/24 12:43 Pulse Rate 89 12/21/24 13:35 Respiratory Rate 20 12/21/24 13:35 Blood Pressure 140/80 12/21/24 12:43 Pulse Oximetry 96 12/21/24 13:45 Oxygen Delivery Room Air 12/21/24 13:45 Lab Data 12/21/24 13:41 12/21/24 13:41 Labs: Lab Results 12/21/24 12/21/24 Range/Units 13:40 13:41 WBC 9.9 (4.8-10.8) K/mm3 RBC 4.52 (4.20-5.40) M/mm3 Hgb 12.4 (12.0-15.0) g/dL Hct 39.0 (35.0-49.0) % MCV 86.3 (78.0-102.0) fL MCH 27.4 (27.0-31.0) pg MCHC 31.8 L (32-36) g/dL RDW 13.1 (11.6-14.4) % Plt Count 256 (150-420) K/mm3 MPV 10.0 (9.2-11.8) fl PT 10.9 (9.50-12.1) Seconds INR 1.0 APTT 27.2 (23.9-30.70) Sec D-Dimer 0.43 (0.19-0.50) mg/L Sodium 136 L (137-145) mmol/L Potassium 3.6 (3.4-5.0) mmol/L Chloride 106 (98-107) mmol/L Carbon Dioxide 25 (22-30) mmol/L Anion Gap 5 (4-12) mmol/L BUN 14 (7-17) mg/dL Creatinine 1.02 H (0.7-1.0) mg/dL Estim Creat Clear Calc 62 ml/min Estimated GFR 55 L (59 - ) Glucose 127 H (65-110) mg/dL Calculated Osmolality 284 L (285-295) mOsm/kg Lactic Acid 1.1 (0.4-2.0) mmol/L Calcium 9.0 (8.4-10.2) mg/dL Total Bilirubin 0.9 (0.2-1.3) mg/dL AST 20 (14-36) U/L ALT 16 (6-35) U/L Alkaline Phosphatase 124 (38-126) U/L Troponin I < 0.012 (0.000-0.034) ng/mL NT-Pro-B Natriuret Pep 237 H (19.9-100) pg/mL Total Protein 7.2 (6.3-8.2) g/dL Albumin 3.9 (3.5-5.1) g/dL Influenza A (RT-PCR) Negative (Negative) Influenza B (RT-PCR) Negative (Negative) RSV (RT-PCR) Negative (Negative) SARS-CoV-2 RNA (RT-PCR) Negative (Negative) Group A Strep (PCR) Not detected (Negative) Discharge Plan Discharge Clinical Impression: Pulmonary nodule Acute bronchitis Qualifiers: Bronchitis organism: unspecified organism Qualified Code(s): J20.9 - Acute bronchitis, unspecified Patient Disposition: Home Condition: Stable Instructions: Antibiotic Form, Acute Bronchitis (ED), Pulmonary Nodules (ED) Additional Instructions: doxycycline 100 mg twice a day for 10 days. Albuterol 2 puffs 4 times a day for 10 days. Discussed with your primary care provider or your cancer doctor about repeating a CT scan in 3 months to recheck your left lung nodule. Patient Language: Icelandic Prescriptions: New doxycycline hyclate 100 mg capsule 100 mg PO DAILY 10 Days Qty: 10 0RF albuterol sulfate [Ventolin HFA] 90 mcg/actuation HFA aerosol inhaler 2 puff inhalation QID 10 Days Qty: 8.5 0RF No Action azithromycin 250 mg tablet See Rx Instructions PO DAILY Qty: 6 0RF Rx Instructions: take 500 mg today by mouth - two tablets (day 1), then 250 mg (one tablet) by mouth for 4 days (days 2-5) orally daily; benzonatate 200 mg capsule 200 mg PO TID PRN (Reason: cough) Qty: 60 0RF cholecalciferol (vitamin D3) 50 mcg (2,000 unit) capsule 50 mcg PO DAILY Qty: 30 2RF atorvastatin 80 mg tablet See Rx Instructions .ROUTE .COMPLEX Qty: 30 3RF Dose Instruction: TAKE 1 TABLET BY MOUTH EVERYDAY AT BEDTIME Rx Instructions: TAKE 1 TABLET BY MOUTH EVERYDAY AT BEDTIME pantoprazole 40 mg tablet,delayed release (DR/EC) See Rx Instructions .ROUTE .COMPLEX Qty: 30 5RF Dose Instruction: TAKE 1 TABLET BY MOUTH EVERYDAY AT BEDTIME Rx Instructions: TAKE 1 TABLET BY MOUTH EVERYDAY AT BEDTIME lisinopril 5 mg tablet See Rx Instructions .ROUTE .COMPLEX Qty: 60 0RF Dose Instruction: TAKE 1 TABLET BY MOUTH EVERY DAY FOR 8 WEEKS, PLEASE TAKE CARE WITH POSITIONAL CHANGES Rx Instructions: TAKE 1 TABLET BY MOUTH EVERY DAY FOR 8 WEEKS, PLEASE TAKE CARE WITH POSITIONAL CHANGES hydrochlorothiazide 12.5 mg capsule See Rx Instructions .ROUTE .COMPLEX Qty: 56 2RF Dose Instruction: 12.5 MG ORALLY DAILY FOR 8 WEEKS Rx Instructions: 12.5 MG ORALLY DAILY FOR 8 WEEKS Follow-up/Referrals: Gregg Andino APRN [Primary Care Provider] - Time of Disposition: 16:28
--- NOTE | 2024-12-21 13:20 | ECG_ITS ---
Test Date: 2024-12-21 13:42:18 Measurements Intervals [place] Rate: 91 P: 70 ND: 169 QRS: 81 QRSD: 90 T: 62 QT: 355 QTc: 439 Interpretive Statements SINUS RHYTHM WITH FREQUENT VENTRICULAR PREMATURE COMPLEXES No previous ECG available for comparison Electronically Signed On 12-22-2024 13:15:41 CDT by Korina Osborne M.D.
--- OUTSIDE RECORDS SUMMARY | 2024-12-21 13:24 | XMS_ITS | Clinical Summary ---
Author Organization [facility] ([facility] at the [facility] Address [address] [place] [address] Care Team Providers Care Clinical Laboratory Technician Name Role Phone Sina Gregg HUDSON Primary Care Provider [phone] Cecil Garcia MD Unavailable Gonzalo Mann MD Unavailable Allergies No known active allergies Medications lisinopriL [...] Description 11/16/2024 11:00 AM CDT Office Visit [facility] Medical Office Building 2 Radiation Oncology [address] [place] [phone] Brigette Garcia, PA Malignant neoplasm of upper lobe of left lung (HCC) (Primary Dx); Personal history of radiation therapy 11/10/2024 12:48 PM CDT - 11/10/2024 11:59 PM CDT Hospital Encounter [facility] [address] [place] [id number] Discharge Disposition: Discharge to home or self care 09/28/2024 Telephone [facility] Medical Office Building 2 Radiation Oncology [address] [place] [id number] Sondra Ritchie from Last 3 Months Surgical [...] on file Legal Sex Female 12:57 AM 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 There will be no report generated by a [facility] Radiologist. Narrative [facility] - 11/10/2024 12:48 PM CDT EXAMINATION: Images For Reference Purposes Only us Gonzalo Mann MD IMG CT PROCEDURES Final Result [facility] from Last 3 Months Insurance [facility] Member Subscriber Plan / Payer (Ef fective 2023-Present) Name:Emely Woodard Azra Relation to Subscriber:Self Name:Emely Woodard Payer ID:[id number] (NAIC) Group ID:Not on file Type:MEDICAID RISK OTHER Address: [facility] [id number] [place] [id number] Care Teams Clinical Laboratory Technician Relationship Specialty Start Date End Date Gregg Andino NP [address] [place] [address] PCP - General Family Medicine 11/26/23 Cecil Garcia MD [address] [place] [address] Surgeon Thoracic Surgery 01/13/24 Gonzalo Mann MD [address] [place] [id number] Radiation Oncologist Radiation Oncology 01/13/24
--- OUTSIDE RECORDS SUMMARY | 2024-12-21 13:24 | XMS_ITS | Referral Summary ---
Author Organization [facility] [place] [facility] [place] [facility] Address [address] [place] [address] Care Team Providers Care Refinery Operator Alkylation Name Role Phone Sina Gregg HUDSON Primary Care Provider [phone] Cecil Garcia MD Unavailable Gonzalo Mann MD Unavailable [phone] Encounters Date Type Department Care Team Description 11/16/2024 11:00 AM CDT Office Visit [facility] Medical Office Building [address] Radiation Oncology [address] [place] [address] Brigette Garcia, PA Malignant neoplasm of upper lobe of left lung (HCC) (Primary Dx); Personal history of radiation therapy 11/10/2024 12:48 PM CDT - 11/10/2024 11:59 PM CDT Hospital Encounter [facility] [address] [place] [phone] Discharge Disposition: Discharge to home or self care 09/28/2024 Telephone [facility] Medical Office Building 2 Radiation Oncology [address] [place] [address] Sondra Ritchie from Last 3 Months Allergies [...] on file 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 There will be no report generated by a [facility] Radiologist. Narrative [facility] - 11/10/2024 12:48 PM CDT EXAMINATION: Images For Reference Purposes Only us Gonzalo Mann MD IMG CT PROCEDURES Final Result [facility] from Last 3 Months Insurance [facility] Care Teams Refinery Operator Alkylation Relationship Specialty Start Date End Date Gregg Andino NP [address] [place] [address] PCP - General Family Medicine 11/26/23 Cecil Garcia MD [address] [place] [address] Surgeon Thoracic Surgery 01/13/24 Gonzalo Mann MD [address] [place] [address] Radiation Oncologist Radiation Oncology 01/13/24
--- OUTSIDE RECORDS SUMMARY | 2024-12-21 13:24 | XMS_ITS ---
Author Organization [facility] at the [facility] Office Center Address [address] [place] [address] Care Team Providers Care Bridal Stylist Sales Consultant Name Role Phone Sina Gregg HUDSON Primary Care Provider [phone] Cecil Garcia MD Unavailable Gonzalo Mann MD Unavailable [phone] Active Problems Patient Care Coordination No [...]
--- OUTSIDE RECORDS SUMMARY | 2024-12-21 13:24 | XMS_ITS | Clinical Summary ---
Author Organization [facility] Address [address] [place] [address] Care Team Providers Care Sulfuric Acid Plant Operator Name Role Phone Andino, Gregg PALUMBO Primary Care Provider [phone] Bridgett Johnson MD Unavailable Allergies No known [...] Type Department Care Team Description 12/09/2024 Telephone [facility] [address], [place] [address] Bridgett Johnson MD Results 12/07/2024 1:34 PM CDT - 12/07/2024 11:59 PM CDT Hospital Encounter [facility] [address] [place] [address] Bridgett Johnson MD Discharge Disposition: Home or Self Care (Routine Discharge) 12/07/2024 Travel 11/30/2024 10:30 AM CDT Office Visit [facility] [address] [place] [address] Bridgett Johnson MD Heart Problem 11/30/2024 9:37 AM CDT - 11/30/2024 11:59 PM CDT Hospital Encounter [facility] [address] [place] [address] Bridgett Johnson MD Discharge Disposition: Home or Self Care (Routine Discharge) 11/30/2024 Travel 11/25/2024 Orders Only [facility] [address] [place] [address] Bridgett Johnson MD 10/22/2024 Telephone [facility] [address] [place] [address] Bridgett Johnson MD Reschedule 10/15/2024 Telephone [facility] [address] [place] [address] Bridgett Johnson MD Appointment Request 10/08/2024 12:06 PM CERTIFIED RESIDENTIAL MEDICATION AIDE - 10/08/2024 11:59 PM CERTIFIED RESIDENTIAL MEDICATION AIDE Hospital Encounter [facility] [address] [place] [address] Bridgett Johnson MD Discharge Disposition: Home or Self Care (Routine Discharge) 10/08/2024 Travel 10/08/2024 Orders Only [facility] [address] [place] [address] Bridgett Johnson MD 09/28/2024 Telephone [facility] [address] [place] [address] Bridgett Johnson MD Reschedule from Last 3 [...] Description 12/08/2025 9:30 AM CDT Office Visit [facility] [place] [address] Bridgett Johnson MD [address] [place] [address] Health Maintenance Due Date Last Done Comments [...] Every 5 Years 1990 Cervical Cancer Screening [facility] HPV 1990 Mammogram Screening 2000 Zoster Vaccines [...] ECHOCARDIOGRAM W CON Routine 10/08/2024 1:59 PM CERTIFIED RESIDENTIAL MEDICATION AIDE Aortic valve sclerosis from Last 3 Months Results * USV ART DUPLEX LOW JUAN (12/07/2024 3:21 PM CDT) Anatomical Region Laterality Modality Extremity Ultrasound 12/07/2024 1:58 PM CDT Narrative 12/08/2024 5:40 PM CDT Outreach Arterial Duplex Bilateral Vascular Report Pat.Name: Emely Woodard Pat.ID: [id number] .Date: 12/07/2024 Refer.MD: James, [facility] Exam Time: 1:58:00 PM Study Type:OUTREACH ART DUPLEX SCAN BILATERAL LEG Height: 64 in Age: 4 1960,64Y Sex: F Sonogrphr: [facility] Pat. Stat.:Outpatient Reason for Study:PAD (peripheral artery disease), Essential (primary) hypertension, Aortic valve sclerosis Procedures: Study performed at [facility], [place], [place] and interpreted by [facility]. [...] extremity. ++++++++++++++++++++++++++++++++++++ MEASUREMENTS: ++++++++++++++++++++++++++++++++++++ DOPPLER Left SALES FORCE ADMINISTRATOR SALES FORCE ADMINISTRATOR EDV 23 cm/s SALES FORCE ADMINISTRATOR PSV 159 cm/s Left Prox Profunda Prox [...] Pop A EDV 0 cm/s Left Prox ECONOMIST RESEARCH ASSISTANT Prox ECONOMIST RESEARCH ASSISTANT PSV 28 cm/s Prox ECONOMIST RESEARCH ASSISTANT EDV 7 cm/s Left Mid ECONOMIST RESEARCH ASSISTANT Mid ECONOMIST RESEARCH ASSISTANT PSV 8 cm/s Mid ECONOMIST RESEARCH ASSISTANT EDV 3 cm/s Left Dist ECONOMIST RESEARCH ASSISTANT Dist ECONOMIST RESEARCH ASSISTANT PSV 7 cm/s Dist ECONOMIST RESEARCH ASSISTANT EDV 2 cm/s Left Prox Lori A [...] cm/s DPA PSV 24 cm/s Right SALES FORCE ADMINISTRATOR SALES FORCE ADMINISTRATOR EDV 13 cm/s SALES FORCE ADMINISTRATOR PSV 161 cm/s Right Prox Profunda Prox [...] Pop A EDV 0 cm/s Right Prox ECONOMIST RESEARCH ASSISTANT Prox ECONOMIST RESEARCH ASSISTANT PSV 61 cm/s Prox ECONOMIST RESEARCH ASSISTANT EDV 17 cm/s Right Mid ECONOMIST RESEARCH ASSISTANT Mid ECONOMIST RESEARCH ASSISTANT PSV 18 cm/s Mid ECONOMIST RESEARCH ASSISTANT EDV 0 cm/s Right Dist ECONOMIST RESEARCH ASSISTANT Dist ECONOMIST RESEARCH ASSISTANT PSV 18 cm/s Dist ECONOMIST RESEARCH ASSISTANT EDV 0 cm/s Right Prox Lori A [...] Bilateral Vascular Report Pat.Name: Emely Woodard Pat.ID: [id number] .Date: 12/07/2024 [facility]: 1:58[facility]00 PM Study Type:OUTREACH ART DUPLEX SCAN BILATERAL LEG Height: 64 in Age: 4 1960,64Y Sex: F Sonogrphr: [facility] Pat. Stat.:Outpatient Reason for Study:PAD (peripheral artery disease), Essential (primary) hypertension, Aortic valve sclerosis Procedures: Study performed at [place], [place] and interpreted by [facility]. ++++++++++++++++++++++++++++++++++++ SUMMARY: ++++++++++++++++++++++++++++++++++++ Rt Lower [...] extremity. ++++++++++++++++++++++++++++++++++++ MEASUREMENTS: ++++++++++++++++++++++++++++++++++++ DOPPLER Left SALES FORCE ADMINISTRATOR SALES FORCE ADMINISTRATOR EDV 23 cm/s SALES FORCE ADMINISTRATOR PSV 159 cm/s Left Prox Profunda Prox [...] Pop A EDV 0 cm/s Left Prox ECONOMIST RESEARCH ASSISTANT Prox ECONOMIST RESEARCH ASSISTANT PSV 28 cm/s Prox ECONOMIST RESEARCH ASSISTANT EDV 7 cm/s Left Mid ECONOMIST RESEARCH ASSISTANT Mid ECONOMIST RESEARCH ASSISTANT PSV 8 cm/s Mid ECONOMIST RESEARCH ASSISTANT EDV 3 cm/s Left Dist ECONOMIST RESEARCH ASSISTANT Dist ECONOMIST RESEARCH ASSISTANT PSV 7 cm/s Dist ECONOMIST RESEARCH ASSISTANT EDV 2 cm/s Left Prox Lori A [...] cm/s DPA PSV 24 cm/s Right SALES FORCE ADMINISTRATOR SALES FORCE ADMINISTRATOR EDV 13 cm/s SALES FORCE ADMINISTRATOR PSV 161 cm/s Right Prox Profunda Prox [...] Pop A EDV 0 cm/s Right Prox ECONOMIST RESEARCH ASSISTANT Prox ECONOMIST RESEARCH ASSISTANT PSV 61 cm/s Prox ECONOMIST RESEARCH ASSISTANT EDV 17 cm/s Right Mid ECONOMIST RESEARCH ASSISTANT Mid ECONOMIST RESEARCH ASSISTANT PSV 18 cm/s Mid ECONOMIST RESEARCH ASSISTANT EDV 0 cm/s Right Dist ECONOMIST RESEARCH ASSISTANT Dist ECONOMIST RESEARCH ASSISTANT PSV 18 cm/s Dist ECONOMIST RESEARCH ASSISTANT EDV 0 cm/s Right Prox Lori A [...] 12/08/2024 5:42 PM CDT Outreach Arterial Doppler BRIAN Vascular Report Pat.Name: Emely Woodard Pat.ID: [id number] .Date: 12/07/2024 Refer.MD: James, [facility] Exam Time: 3:00:00 PM Study Type:OUTREACH ART DOPPLER - BRIAN Height: 64 in Age: 4 1960,64Y Sex: F Sonogrphr: brandan Prab[facility]ak[facility] Pat. Stat.:Outpatient Reason for Study:PAD (peripheral artery disease), Essential (primary) hypertension, Aortic valve sclerosis Procedures: Study performed at [facility], [place], [place] and interpreted by [facility]. ++++++++++++++++++++++++++++++++++++ FINDINGS: ++++++++++++++++++++++++++++++++++++ BRIAN Rt: [...] 0.196 <Electronic Signature> 12/08/2024 05:42 PM Bridgett Jonhson M.D. Procedure Note Bridgett Johnson MD - 12/08/2024 Outreach Arterial Doppler BRIAN Vascular Report Pat.Name: Emely Woodard Pat.ID: [id number] .Date: 12/07/2024 Refer.MD: James, [facility] Exam Time: 3:00:00 PM Study Type:OUTREACH ART DOPPLER - BRIAN Height: 64 in Age: 4 1960,64Y Sex: F Sonogrphr: brandan Prabhakar [facility] Pat. Stat.:Outpatient Reason for Study:PAD (peripheral artery disease), Essential (primary) hypertension, Aortic valve sclerosis Procedures: Study performed at [place], [place] and interpreted by [facility]. [...] PM Bridgett Johnson M.D. Bridgett Johnson MD [facility] Final Result * ECG 12 lead (HOSPITAL PERFORMED ONLY) (11/30/2024 9:44 AM CDT) 11/30/2024 9:44 AM CDT Narrative [facility] - 12/01/2024 1:[address] PM [address]T [address] [place] [address] Test Date: 2024-11-30 Pat Name: EMELY PINEDASALIMA Department: 3 Room: Gender: Female Hand Stone Polisher: : 1960 Requested By: BRIDGETT JOHNSON Order Number: [id number] Reading MD: Bridgett Johnson Measurements Intervals [place] Rate: 82 P: 73 UT: 185 QRS: 81 QRSD: 93 T: 58 QT: 361 QTc: 423 Interpretive Statements SINUS RHYTHM Procedure Note Bridgett Johnson MD - 12/01/[address] [place] [address] Test Date: 2024-11-30 Pat Name: EMELY WOODARD Department: 3 Room: Gender: Female Hand Stone Polisher: : 1960 Requested By: BRIDGETT JOHNSON Order Number: [id number] Reading MD: Bridgett Johnson Measurements Intervals [place] Rate: 82 P: 73 UT: 185 QRS: 81 QRSD: 93 T: 58 QT: 361 QTc: 423 Interpretive Statements SINUS RHYTHM us Bridgett Johnson MD ECG ORDERABLES Final Result [facility] * USE ECHOCARDIOGRAM W CON (10/08/2024 1:59 PM CERTIFIED RESIDENTIAL MEDICATION AIDE) Anatomical Region Laterality Modality NA Ultrasound 10/08/2024 12:1 8 PM CERTIFIED RESIDENTIAL MEDICATION AIDE Narrative 10/10/2024 9:25 PM CERTIFIED RESIDENTIAL MEDICATION AIDE Echocardiography Report Pat.Name: Yuki Woodardjonn Armstrong.ID: [id number] .Date: 10/08/2024 Refer.MD: James, [facility] Exam Time: 12:18:00 PM Study Type:OUTREACH Height: 64 in Weight: 265 lb BSA: 2.2 m2 Age: 4 1960,63Y Sex: F Sonogrphr: Romain Armstrong. Stat.:Outpatient CPT - 4: C8929 Reason for Study:Aortic valve sclerosis Procedures: Study performed at [facility], [place], [place] and interpreted by [facility]. [...] 10/12/2024 Echocardiography Report Pat.Name: Emely Woodard Pat.ID: [id number] .Date: 10/08/2024 Refer.MD: James, [facility] Exam Time: 12:18:00 PM Study Type:JAMES Height: 64 in Weight: 265 lb BSA: 2.2 m2 Age: 4 1960,63Y Sex: F Sonogrphr: Romain Armstrong. Stat.:Outpatient CPT - 4: C8929 Reason for Study:Aortic valve sclerosis Procedures: Study performed at [place], [place] and interpreted by [facility]. 2D, M-mode, Doppler, Color Flow, [...] Final Result from Last 3 Months Insurance [facility] Care Teams Sulfuric Acid Plant Operator Relationship Specialty Start Date End Date Gregg Andino FNP [address] [place] [phone] PCP - General Nurse Practitioner Family 06/13/23 Bridgett Johnson MD [address] [place] [address] [place] [address] Consulting Physician CARDIOVASCULAR DISEASE 06/13/23
[2024-12-21] MEDS: IPRATROPIUM 0.5 MG/ALBUTEROL SULFATE 2.5 MG AMPUL.NEB 3 ML INHALATION (13:31)
[2024-12-21 13:48] LABS: Hemoglobin 12.4 g/dL (12.0-15.0); Mean Corpuscular HGB Conc 31.8 g/dL (32-36); Mean Corpuscular Hemoglobin 27.4 pg (27.0-31.0); Mean Corpuscular Volume 86.3 fL (78.0-102.0); Platelet Count Result 256 K/mm3 (150-420); Red Blood Count 4.52 M/mm3 (4.20-5.40); Red Cell Distribution Width 13.1 % (11.6-14.4); White Blood Count 9.9 K/mm3 (4.8-10.8)
[2024-12-21 14:01] LABS: Partial Thromboplastin Time 27.2 Sec (23.9-30.70); Prothrombin Time 10.9 Seconds (9.50-12.1)
[2024-12-21 14:05] LABS: D Dimer 0.43 mg/L (0.19-0.50)
[2024-12-21 14:09] LABS: Alanine Aminotransferase 16 U/L (6-35); Albumin Level 3.9 g/dL (3.5-5.1); Alkaline Phosphatase 124 U/L (38-126); Anion Gap 5 mmol/L (4-12); Aspartate Amino Transferase 20 U/L (14-36); Bilirubin,Total 0.9 mg/dL (0.2-1.3); Blood Urea Nitrogen 14 mg/dL (7-17); Carbon Dioxide 25 mmol/L (22-30); Chloride 106 mmol/L (98-107); Estimated CRCL calculation 62 ml/min; Estimated Glomerular Filt Rate 55; Glucose 127 mg/dL (65-110); Osmolality Calculated 284 mOsm/kg (285-295); Potassium 3.6 mmol/L (3.4-5.0); Sodium 136 mmol/L (137-145); Total Protein 7.2 g/dL (6.3-8.2)
[2024-12-21 14:17] LABS: Lactic Acid Reflex 1.1 mmol/L (0.4-2.0)
[2024-12-21 14:22] LABS: NT Pro B Type Natriuretic Pept 237 pg/mL (19.9-100)
[2024-12-21 14:24] LABS: Troponin I < 0.012 ng/mL (0.000-0.034)
[2024-12-21 14:25] LABS: Influenza A QL RT-PCR Negative (Negative); Influenza B QL RT-PCR Negative (Negative); RSV RNA, RT-PCR Negative (Negative); SARS-CoV-2 RNA PCR Negative (Negative)
[2024-12-21 14:54] LABS: Strep Group A RT-PCR NOT DETECTED (Negative)
--- NOTE | 2024-12-22 12:30 | PC.NURSE ---
PRELIMINARY BLOOD CULTURE REPORT; NO GROWTH TO DATE.
--- NOTE | 2024-12-27 13:56 | PC.NURSE ---
FINAL BLOOD CULTURE REPORT; NO GROWTH AFTER 5 DAYS.
== END 2024-12-21 16:41 | disposition home or self-care (01) ==
PROVIDERS: Emergency Provider Emergency Medicine; PCP Nurse Practitioner Family
DX: R91.1 Solitary pulmonary nodule (principal); J20.9 Acute bronchitis, unspecified; I10 Essential (primary) hypertension; E78.5 Hyperlipidemia, unspecified; K21.9 Gastro-esophageal reflux disease without esophagitis; Z20.822 Contact with and (suspected) exposure to COVID-19
CPT/HCPCS: 36415; 71046; 80053; 83605; 83880; 84484; 85027; 85380; 85610; 85730; 87040; 87637; 87651; 93005; 94640; 99284

== ENCOUNTER 2025-01-01 10:36 | Outpatient (CLI) | payer OTHER, SELFPAY ==
--- OUTSIDE RECORDS SUMMARY | 2025-01-01 10:50 | XMS_ITS | Clinical Summary ---
Author Organization [facility] at [facility] Address [address] [place] [address] Care Team Providers Care Grooming Salon Manager Name Role Phone Sina Gregg HUDSON Primary Care Provider [phone] Cecil Garcia MD Unavailable Gonzalo Mann MD Unavailable [phone] Allergies No known active allergies Medications [...] Description 11/16/2024 11:00 AM CDT Office Visit [facility] Medical Office Building 2 Radiation Oncology [address] [place] [address] Brigette Garcia, PA Malignant neoplasm of upper lobe of left lung (HCC) (Primary Dx); Personal history of radiation therapy 11/10/2024 12:48 PM CDT - 11/10/2024 11:59 PM CDT Hospital Encounter [facility] [address] [place] [address] Discharge Disposition: Discharge to home or self care from Last 3 Months Surgical History Surgery [...] on file 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 There will be no report generated by a [facility] Radiologist. Narrative [facility] - 11/10/2024 12:48 PM CDT EXAMINATION: Images For Reference Purposes Only us Gonzalo Mann MD IMG CT PROCEDURES Final Result [facility] from Last [address] [facility] Care Teams Grooming Salon Manager Relationship Specialty Start Date End Date Gregg Andino NP [address] [place] [address] PCP - General Family Medicine 11/26/23 Cecil Garcia MD [address] [place] [address] Surgeon Thoracic Surgery 01/13/24 Gonzalo Mann MD [address] [place] [address] Radiation Oncologist Radiation Oncology 01/13/24
--- OUTSIDE RECORDS SUMMARY | 2025-01-01 10:50 | XMS_ITS ---
Author Organization [facility] the [facility] Address [address] [place] [address] Care Team Providers Care Administrative Liaison Name Role Phone Sina Gregg HUDSON Primary Care Provider [phone] Cecil Garcia MD Unavailable Gonzalo Mann MD Unavailable [phone] Active Problems Patient Care Coordination No [...]
--- OUTSIDE RECORDS SUMMARY | 2025-01-01 10:50 | XMS_ITS | Referral Summary ---
Author Organization [facility] Address [address] [place] [address] Care Team Providers Care Social Science Research Assistant Name Role Phone Sina Gregg HUDSON Primary Care Provider [phone] Cecil Garcia MD Unavailable Gonzalo Mann MD Unavailable [phone] Encounters Date Type Department Care Team Description 11/16/2024 11:00 AM CDT Office Visit 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 There will be no report generated by a [facility] Radiologist. Narrative [facility] - 11/10/2024 12:48 PM CDT EXAMINATION: Images For Reference Purposes Only us Gonzalo Mann MD IMG CT PROCEDURES Final Result [facility] from Last 3 Months Insurance [employer] [facility] [place] [employer] [facility] [place] Care Teams Social Science Research Assistant Relationship Specialty Start Date End Date Gregg Andino NP [address] [place] [address] PCP - General Family Medicine 11/26/23 Cecil Garcia MD [address] [place] [address] Surgeon Thoracic Surgery 01/13/24 [place] [address] [place] [address] Radiation Oncologist Radiation Oncology 01/13/24
--- NOTE | 2025-01-05 12:10 | WPDHOLTEREM ---
Holter/Event Monitor Holter/Event Monitor Date of procedure: 01/01/25 Holter/Event Procedure: 48 Hr Holter Monitor Indications: PVC's Conclusion: 1. 48 hour holter monitor on 01/01/25. 2. Predominant rhythm is sinus rhythm. HR range 59-122 bpm; average HR 83 bpm. 3. There are 13 premature supraventricular complexes. There is 1 episode of atrial tachycardia at 152 bpm lasting 6 beats at 2:01 am. 4. There are 1,282 premature ventricular complexes, 3 ventricular couplets, and 28 ventricular trigeminy. No ventricular tachycardia. 5. No significant pauses greater than 2 seconds. 6. No symptoms available for correlation.
== END 2025-01-01 10:37 | disposition home or self-care (01) ==
LOC: CHSCARD 10:38
PROVIDERS: PCP Nurse Practitioner Family; Visit Provider Nurse Practitioner Family
DX: I49.3 Ventricular premature depolarization (principal)
CPT/HCPCS: 93225; 93226

== ENCOUNTER 2025-02-16 09:52 | Outpatient (CLI) | payer MEDICARE, SELFPAY ==
--- NOTE | ~2025-02-16 | CT_ITS ---
CT Scan of the Chest without Contrast: Clinical Indication: Lung cancer Technique: Contiguous sections were acquired throughout the chest without intravenous contrast. Dose reduction technique was used on this scan by utilizing automated exposure control and iterative recon struction technique. The dose-length product (DLP) was 739.44 mGy-cm. COMPARISON: 11/09/2024 Findings: There is no evidence of any significant mediastinal, hilar or axillary lymphadenopathy. The mediastin al soft tissues appear normal. There is no evidence of pleural or pericardial effusion. Calcified right lower lobe granuloma present. Stable posttreatment/post radiation change in the left upper lobe peripherally. Images through the upper abdomen reveal small hiatal hernia. Impression: Stable postradiation/posttreatment change in the left upper lobe. Reviewed, dictated and finalized at location . Impression: Stable postradiation/posttreatment change in the left upper lobe.
--- OUTSIDE RECORDS SUMMARY | 2025-02-16 10:05 | XMS_ITS | Referral Summary ---
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
--- OUTSIDE RECORDS SUMMARY | 2025-02-16 10:05 | XMS_ITS | Clinical Summary ---
Author Organization [facility] at the 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
--- OUTSIDE RECORDS SUMMARY | 2025-02-16 10:05 | XMS_ITS | Encounter Summary ---
Author Organization [facility] Address [address] [place] [address] Care Team Providers Care Burial Needs Salesperson Name Role Phone Andino, Gregg PALUMBO Primary Care Provider [phone] Tamia Edward MD Unavailable Reason for Visit * Reason Onset Date Comments Other 01/01/2025 Cardiac rehab Encounter Details Date Type Department Care Team ([facility] Contact Info) Description 01/01/2025 [facility]phone [facility] [address] [place] [phone] Tamia Edward MD [address] [place] [address] Other (Cardiac rehab) Social History Tobacco Use Types Packs/Day Years Used Date Smoking Tobacco: Every Day Cigarettes Smokeless Tobacco: Never Alcohol Use Standard Drinks/Week Comments Never 0 (1 standard drink = 0.6 oz pur e alcohol) Comments Unknown Sex and Gender Information Value Date Recorded Sex Assigned at Female 11/30/2024 9:36 AM CDT Legal Sex Female 7:54 PM CDT Gender Identity Not on file Sexual Orientation Not on file documented as of this encounter Progress Notes * Fidelina Alvarez - 01/01/2025 1:49 PM CDT Cardiac rehab called to inform the office the patient has declined rehab at this time. She is also awaiting a call back about her PAD medication that insurance will not cover. documented in this encounter Plan of Treatment Upcoming Encounters Date Type Department Care Team (Late st Contact Info) Description 12/08/2025 9:30 AM CDT Office Visit [facility] [address] [place] [address] Tamia Edward MD [address] [place] [address] documented as of this encounter Visit Diagnoses Not on filedocumented in this encounter Care Teams Burial Needs Salesperson Relationship Specialty Start Date End Date Gregg Andino FNP [address] [place] [phone] PCP - General Nurse Practitioner Family 06/13/23 Tamia Edward MD [address] [place] [address] Consulting Physician CARDIOVASCULAR DISEASE 06/13/23 documented as of this encounter
--- OUTSIDE RECORDS SUMMARY | 2025-02-16 10:05 | XMS_ITS | Clinical Summary ---
Author Organization [facility] Address [address] [place] [address] Care Team Providers Care Knit Goods Washer Name Role Phone Sina Gregg PALUMBO Primary Care Provider [phone] Bridgett Johnson MD Unavailable Allergies No known [...] Encounters Date Type Department Care Team Description 01/05/2025 Sarmad [facility] [address] [place] [address] Abstract, Doc Pccl 01/01/2025 Scan [facility] [address] [place] [address] Scanned, Doc Pccl Holter Monitor Report (SCAN) 01/01/2025 Telephone [facility] [address] [place] [address] Bridgett Johnson MD Other (Cardiac rehab) 12/24/2024 Scan [facility] [address] [place] [address] Scanned, Doc Pccl 12/21/2024 Scan [facility] [address] [place] [address] Scanned, Doc Pccl ECG (SCAN) 12/21/2024 Scan [facility] [address] [place] [address] Scanned, Doc Pccl 12/21/2024 Scan [facility] [address] [place] [address] Scanned, Doc Pccl Image (SCAN) 12/09/2024 Telephone [facility] eld [address] [place] [address] Bridgett Johnson MD Results 12/07/2024 1:34 PM CDT - 12/07/2024 11:59 PM CDT Hospital Encounter [facility] [address] [place] [address] Bridgett Johnson MD Discharge Disposition: Home or Self Care (Routine Discharge) 12/07/2024 Travel 11/30/2024 10:30 AM CDT Office Visit [facility] [address] [place] [address] Bridgett Johnson MD Heart Problem 11/30/2024 9:37 AM CDT - 11/30/2024 11:59 PM CDT Hospital Encounter [facility] [address] [place] [address] Bridgett Johnson MD Discharge Disposition: Home or Self Care (Routine Discharge) 11/30/2024 Travel 11/25/2024 Orders Only [facility] [address] [place], [place] [address] Bridgett Johnson MD from Last 3 Months Family History Medical [...] 9:57 AM CDT Height 160 cm (5' 3) 11/30/2024 9:57 AM CDT Body Mass Index 46.94 11/30/2024 9:57 AM CDT Plan of Treatment Upcoming Encounters Date Type Department Care Team (Late st Contact Info) Description 12/08/2025 9:30 AM CDT Office Visit [facility] [place] [address] Bridgett Johnson MD [address] [place], [place] [id number] Health Maintenance Due Date Last Done Comments [...] 60-74 years 1-dose series) 2020 COVID-19 Vaccine (4 - 2023-2 5 season) 2024 01/20/2022, 03/10/2021, 02/17/2021 Meningococcal [...] Procedure Name Priority Date/Time Associated Diagnosis Comments HOLTER DOCUMENT (SCAN ORDER) Routine 01/01/2025 12:00 AM CDT ECG GENERIC (SCAN ORDER) Routine 12/21/2024 12:00 AM CDT COMPREHENSIVE METABOLIC PANEL Routine 12/21/2024 PRO-BRAIN NATRIURETIC PEPTIDE Routine 12/21/2024 CBC, MANUAL DIFF Routine 12/21/2024 IMAGE GENERIC Routine 12/21/2024 12:00 AM CDT GENERIC ORDERS (SCAN ORDER) 12/21/2024 12:00 AM CDT USV ART DUPLEX LOW JUAN Routine 12/07/2024 3:21 PM CDT PAD (peripheral artery disease) Essential (primary) hypertension Aortic valve sclerosis USV BRIAN LTD JUAN Routine 12/07/2024 3:21 PM CDT PAD (peripheral artery disease) Essential (primary) hypertension Aortic valve sclerosis ECG 12-LEAD Routine 11/30/2024 9:44 AM CDT Essential (primary) hypertension from Last 3 Months Results * HOLTER DOCUMENT (01/01/2025 12:00 AM CDT) 01/01/2025 us Doc Pccl Scanned SCANNING Final Result Performing Organization Address [facility] Co de Phone Number [facility] * PRO-BRAIN NATRIURETIC PEPTIDE (12/21/2024) PRO-B TYPE NATRIURETIC PEPTIDE 237 Narrative Resulting Agency Comment Received from pcp [facility] LABORATORY Final Result * GENERIC ORDERS (SCAN ORDER) (12/21/2024 12:00 AM CDT) 12/21/2024 us Doc Pccl Scanned SCANNING Final Result * ECG (12/21/2024 12:00 AM CDT) 12/21/2024 us Doc Pccl Scanned SCANNING Final Result Performing Organization Address [facility] de Phone Number [facility] * IMAGE STUDY (12/21/2024 12:00 AM CDT) Anatomical Region Laterality Modality Other 12/21/2024 us Doc Pccl Scanned SCANNING Final Result * (ABNORMAL) COMPREHENSIVE METABOLIC PANEL (12/21/2024) SODIUM S/P/B 136 GLUCOSE 127 mg/dL AST 20 BUN 14 CREATININE S/P/B 1.02(A) 0.5 - 1.0 CALCIUM S/P/B 9.0 POTASSIUM S/P/B 3.6 CHLORIDE S/P/B 106 ALT 16 GFR ESTIMATE 55 Narrative Resulting Agency Comment Received from pcp [facility] LABORATORY Final Result * CBC, MANUAL DIFF (12/21/2024) WBC 9.9 HGB 12.4 HCT 39.0 PLT 256 Narrative Resulting Agency Comment Received from pcp us Gregg Andino LOADING MACHINE ADJUSTER LABORATORY Final Result * USV ART DUPLEX LOW JUAN (12/07/2024 3:21 PM CDT) Anatomical Region Laterality Modality Extremity Ultrasound 12/07/2024 1:58 PM CDT Narrative 12/08/2024 5:40 PM CDT Outreach Arterial Duplex Bilateral Vascular Report Pat.Name: Emely Woodard Pat.ID: [id number] .Date: 12/07/2024 Refer.MD: Hawa, [facility] Exam Time: 1:58:00 PM Study Type:OUTREACH ART DUPLEX SCAN BILATERAL LEG Height: 64 in Age: 4 1960,64Y Sex: F Sonogrphr: Cata Ballard [facility] Pat. Stat.:Outpatient Reason for Study:PAD (peripheral artery disease), Essential (primary) hypertension, Aortic valve sclerosis Procedures: Study performed at [place], [place] and interpreted by [facility]. ++++++++++++++++++++++++++++++++++++ SUMMARY: ++++++++++++++++++++++++++++++++++++ Rt Lower [...] lower extremity. ++++++++++++++++++++++++++++++++++++ MEASUREMENTS: ++++++++++++++++++++++++++++++++++++ DOPPLER Left ICE CARVER ICE CARVER EDV 23 cm/s ICE CARVER PSV 159 cm/s Left Prox Profunda Prox [...] Pop A EDV 0 cm/s Left Prox TAG MACHINE OPERATOR Prox TAG MACHINE OPERATOR PSV 28 cm/s Prox TAG MACHINE OPERATOR EDV 7 cm/s Left Mid TAG MACHINE OPERATOR Mid TAG MACHINE OPERATOR PSV 8 cm/s Mid TAG MACHINE OPERATOR EDV 3 cm/s Left Dist TAG MACHINE OPERATOR Dist TAG MACHINE OPERATOR PSV 7 cm/s Dist TAG MACHINE OPERATOR EDV 2 cm/s Left Prox Lori A Prox Lori A EDV 4 cm/s Prox Olri A PSV 8 cm/s Left Mid Lori [...] 0 cm/s DPA PSV 24 cm/s Right ICE CARVER ICE CARVER EDV 13 cm/s ICE CARVER PSV 161 cm/s Right Prox Profunda Prox [...] Pop A EDV 0 cm/s Right Prox TAG MACHINE OPERATOR Prox TAG MACHINE OPERATOR PSV 61 cm/s Prox TAG MACHINE OPERATOR EDV 17 cm/s Right Mid TAG MACHINE OPERATOR Mid TAG MACHINE OPERATOR PSV 18 cm/s Mid TAG MACHINE OPERATOR EDV 0 cm/s Right Dist TAG MACHINE OPERATOR Dist TAG MACHINE OPERATOR PSV 18 cm/s Dist TAG MACHINE OPERATOR EDV 0 cm/s Right Prox Lori A [...] Bilateral Vascular Report Pat.Name: Emely Woodard Pat.ID: [id number] .Date: 12/07/2024 Refer.MD: Outreach, [facility] Exam Time: 1:58:00 PM Study Type:OUTREACH ART DUPLEX SCAN BILATERAL LEG Height: 64 in Age: 4 1960,64Y Sex: F Sonogrphr: Cata Ballard [facility] Pat. Stat.:Outpatient Reason for Study:PAD (peripheral artery disease), Essential (primary) hypertension, Aortic valve sclerosis Procedures: Study performed at [facility], [place], [place] and interpreted by [facility]. ++++++++++++++++++++++++++++++++++++ SUMMARY: ++++++++++++++++++++++++++++++++++++ Rt Lower [...] lower extremity. ++++++++++++++++++++++++++++++++++++ MEASUREMENTS: ++++++++++++++++++++++++++++++++++++ DOPPLER Left ICE CARVER ICE CARVER EDV 23 cm/s ICE CARVER PSV 159 cm/s Left Prox Profunda Prox [...] Pop A EDV 0 cm/s Left Prox TAG MACHINE OPERATOR Prox TAG MACHINE OPERATOR PSV 28 cm/s Prox TAG MACHINE OPERATOR EDV 7 cm/s Left Mid TAG MACHINE OPERATOR Mid TAG MACHINE OPERATOR PSV 8 cm/s Mid TAG MACHINE OPERATOR EDV 3 cm/s Left Dist TAG MACHINE OPERATOR Dist TAG MACHINE OPERATOR PSV 7 cm/s Dist TAG MACHINE OPERATOR EDV 2 cm/s Left Prox Lori A [...] 0 cm/s DPA PSV 24 cm/s Right ICE CARVER ICE CARVER EDV 13 cm/s ICE CARVER PSV 161 cm/s Right Prox Profunda Prox [...] Pop A EDV 0 cm/s Right Prox TAG MACHINE OPERATOR Prox TAG MACHINE OPERATOR PSV 61 cm/s Prox TAG MACHINE OPERATOR EDV 17 cm/s Right Mid TAG MACHINE OPERATOR Mid TAG MACHINE OPERATOR PSV 18 cm/s Mid TAG MACHINE OPERATOR EDV 0 cm/s Right Dist TAG MACHINE OPERATOR Dist TAG MACHINE OPERATOR PSV 18 cm/s Dist TAG MACHINE OPERATOR EDV 0 cm/s Right Prox Lori A [...] Signature> 12/08/2024 05:40 PM Bridgett Johnson M.D. us Bridgett Johnson MD VAS Final Result * USV BRIAN LTD JUAN (12/07/2024 3:21 PM CDT) Anatomical Region Laterality Modality Extremity Ultrasound 12/07/2024 3:00 PM CDT Narrative 12/08/2024 5:42 PM CDT Outreach Arterial Doppler BRIAN Vascular Report Pat.Name: Emely Woodard Pat.ID: [id number] .Date: 12/07/2024 Refer.MD: Hawa, [facility] Exam Time: 3:00:00 PM Study Type:OUTREACH ART DOPPLER - BRIAN Height: 64 in Age: 4 1960,64Y Sex: F Sonogrphr: brandan Prabhakar rdia Pat. Stat.:Outpatient Reason for Study:PAD (peripheral artery disease), Essential (primary) hypertension, Aortic valve sclerosis Procedures: Study performed at [place], [place] and interpreted by [facility]. ++++++++++++++++++++++++++++++++++++ FINDINGS: ++++++++++++++++++++++++++++++++++++ BRIAN Rt: [...] BRIAN Vascular Report Pat.Name: Emely Woodard Pat.ID: [id number] .Date: 12/07/2024 [facility]: [facility]00 PM Study Type:OUTREACH ART DOPPLER - BRIAN Height: 64 in Age: 4 1960,64Y Sex: F Sonogrphr: brandan Prabhakar rdms Pat. Stat.:Outpatient Reason for Study:PAD (peripheral artery disease), Essential (primary) hypertension, Aortic valve sclerosis Procedures: Study performed at [facility], [place], [place] and interpreted by [facility]. ++++++++++++++++++++++++++++++++++++ FINDINGS: ++++++++++++++++++++++++++++++++++++ BRIAN Rt: [...] Signature> 12/08/2024 05:42 PM Bridgett Johnson M.D. us Bridgett Johnson MD [facility] Final Result * ECG 12 lead (HOSPITAL PERFORMED ONLY) (11/30/2024 9:44 AM CDT) 11/30/2024 9:44 AM CDT Narrative [facility] - 12/01/2024 1:17 PM CDT [address] [place] [address] Test Date: 2024-11-30 Pat [facility] Department: 3 Room: Gender: Female Tutoring Assistant: : 1960 Requested By: BRIDGETT JOHNSON Order Number: [id number] Reading MD: Bridgett Johnson Measurements Intervals Krum Rate: 82 P: 73 WV: 185 QRS: 81 QRSD: 93 T: 58 QT: 361 QTc: 423 Interpretive Statements SINUS RHYTHM Procedure Note Bridgett Johnson MD - 12/01/[address] [place] [address] Test Date: 2024-11-30 Pat Name: EMELY WOODARD Department: 3 Room: Gender: Female Tutoring Assistant: : 1960 Requested By: BRIDGETT JOHNSON Order Number: [id number] Reading MD: Bridgett Johnson Measurements Intervals Krum Rate: 82 P: 73 WV: 185 QRS: 81 QRSD: 93 T: 58 QT: 361 QTc: 423 Interpretive Statements SINUS RHYTHM us Bridgett Johnson MD ECG ORDERABLES Final Result [facility] [place] [facility] from Last 3 Months Insurance [facility] Care Teams Knit Goods Washer Relationship Specialty Start Date End Date Gregg Andino FNP [address] [place] [address] [phone] PCP - General Nurse Practitioner Family 06/13/23 Bridgett Johnson MD [address] [facility] [place] [address] Consulting Physician CARDIOVASCULAR DISEASE 06/13/23
--- OUTSIDE RECORDS SUMMARY | 2025-02-16 10:05 | XMS_ITS ---
Author Organization [facility] Address [address] [place] [address] Care Team Providers Care Front Desk Associate Name Role Phone Sina Gregg HUDSON Primary Care Provider [phone] Cecil Garcia MD Unavailable Gonzalo Mann MD Unavailable [phone] Active Problems Patient Care Coordination No [...]
== END 2025-02-16 09:53 | disposition home or self-care (01) ==
LOC: CHSIMG 09:56
PROVIDERS: PCP Nurse Practitioner Family; Visit Provider Physician Assistant Medical
DX: C34.12 Malignant neoplasm of upper lobe, left bronchus or lung (principal); Z92.3 Personal history of irradiation
CPT/HCPCS: 71250